=== PATIENT | male | born 1985 | race Hispanic/Latino ===

== ENCOUNTER 2020-01-01 11:56 | Inpatient (IN) | payer OTHER, SELFPAY ==
[2020-01-01 13:17] LABS: #Basophils 0.1 thou/uL (0.0-0.2); #Lymphocytes 1.4 thou/uL (1.20-3.40); #Monocytes 1.7 thou/uL (0.11-0.59); %Basophils 0.7 % (0.0-1.0); %Eosinophils 0.4 % (0.0-10.0); %Lymphocytes 12.8 % (21.0-51.0); %Monocytes 14.9 % (0.0-10.0); %Neutrophils 71.1 % (42.0-75.0); Hemoglobin 13.6 g/dL (14.0-18.0); Mean Corpuscular HGB CONC 33.7 g/dL (32.0-36.0); Mean Platelet Volume 9.8 fL (7.4-10.4); Platelet Count 131 thou/uL (130-400); RBC Distribution Width 13.2 % (11.5-14.5); Red Blood Cell (RBC) Count 3.88 mill/uL (4.70-6.10); White Blood Cell (WBC) Count 11.2 thou/uL (4.8-10.8)
[2020-01-01] MEDS ORDERED: Meclizine HCl 25 MG TAB ONE (13:28)
[2020-01-01 13:40] LABS: ALT (SGPT) 51 U/L (8-55); AST (SGOT) 142 U/L (5-34); Albumin 2.1 g/dL (3.5-5.0); Alkaline Phosphatase 265 U/L (40-110); Anion Gap 12 mmol/L (10-20); BUN (Urea Nitrogen) 26 mg/dL (8.9-20.6); Bilirubin, Total 10.7 mg/dL (0.2-1.2); CK (CPK) 103 U/L (30-200); Calc. Creatinine Clearance 0 mL/min (70-130); Calcium 7.5 mg/dL (7.8-10.44); Carbon Dioxide 25 mmol/L (22-29); Chloride 93 mmol/L (98-107); Estimated GFR-MDRD 67; Globulin 5.8 g/dL (2.4-3.5); Glucose 126 mg/dL (70-105); Potassium 3.2 mmol/L (3.5-5.1); Protein, Total 7.9 g/dL (6.0-8.3); Sodium 127 mmol/L (136-145)
[2020-01-01] MEDS ORDERED: Lorazepam 2 MG/ML VIAL ONE ×2 (13:44→17:36)
--- NOTE | 2020-01-01 14:17 | CT ---
CT BRAIN WITHOUT CONTRAST: HISTORY: Dizziness FINDINGS: No evidence of acute infarct, hemorrhage, midline shift or abnormal extra-axial fluid collections is seen. The ventricular size is appropriate and the basilar cisterns are patent. The bony calvarium is intact. The visualized paranasal sinuses and mastoid air cells are well aerated. IMPRESSION: No CT evidence of acute intracranial process.
[2020-01-01 16:07] LABS: Clarity Hazy (Clear)
[2020-01-01 16:08] LABS: Leukocyte Unable to Interpret (Negative); Nitrite Unable to Interpret (Negative); Protein, Urine (Dipstick) Unable to Interpret mg/dL (Neg-Trace)
[2020-01-01 16:09] LABS: Bilirubin Unable to Interpret (Negative); Blood, Urine Unable to Interpret (Negative); Glucose, Urine (Dipstick) Unable to Interpret mg/dL (Negative); Ketone, Urine Unable to Interpret mg/dL (Negative); Urobilinogen UNABLE TO INTERPRET mg/dL (Less than 2)
[2020-01-01 16:13] LABS: RBC/HPF 0-3 HPF (0-3)
[2020-01-01 16:14] LABS: Squamous Epithelial 0-3 HPF (0-3)
[2020-01-01] MEDS ORDERED: Magnesium 2 GM/50 ML BAG (IN WATER) ONE (17:09)
--- NOTE | 2020-01-01 17:14 | CT ---
CT ABDOMEN AND PELVIS WITHOUT IV CONTRAST: 01/01/20 INDICATIONS: Increased bilirubin. Dizziness. Abnormal urine. There are no comparisons. FINDINGS: Images through the lung bases show patchy nodular infiltrates in both lung bases suggesting an atypic al pneumonia. COVID pneumonia should be excluded. Recommend PA and lateral views of the chest. Images through the upper abdomen show low volume ascites with fluid around the liver margin into the right colonic gutter and a small amount of fluid into the lower abdomen and pelvis. The liver exhibits a mildly irregular contour which is suggestive of cirrhosis. There is borderline s plenomegaly and increased splenic varices. Evidence of early esophageal varices. The pancreas is unremarkable given the limitations of a noncontrast study. The gallbladder is mildly distended. There is mild diffuse mesenteric edema related to the ascites. Adrenal glands normal. Kidneys unremarkable. Small bowel loops normal caliber. Colon unremarkable. Appendix appears normal. Images through the pelvis show unremarkable urinary bladder and prostate. Osseous structures unremark able. IMPRESSION: 1. Diffuse nodular infiltrates in both lung bases consistent with atypical pneumonia. Rule out COVID pneumonia. Recommend upright PA and lateral views of the chest. 2. Findings indicating cirrhosis and portal hypertension as described above with low volume asci lamont as noted above. POS: AGW
[2020-01-01 17:31] LABS: Vitamin B12 Greater than 2000 pg/mL (211-911)
[2020-01-01 17:35] LABS: HBSAg Index 0.17 S/CO (0-0.99); Hep A IgM AB Non-Reactive (NonReactive); Hep A IgM S/CO 0.56 S/CO (0-0.79); Hep B Surf Ag Non-Reactive S/CO (NonReactive); Hep C IgG Ab Non-Reactive (NonReactive); Hep C Index 0.31 S/CO (0-0.79); Hepatitis B Core IgM Abs Non-Reactive (NonReactive)
[2020-01-01] MEDS ORDERED: HYDROcodone/Acetaminophen 5/325 mg Tablet PO PRN (20:43)
[2020-01-01] MEDS ORDERED: Acetaminophen 325 MG TAB PO PRN (20:43)
[2020-01-01] MEDS ORDERED: Acetaminophen 650 MG Suppository PR PRN (20:43)
[2020-01-01] MEDS ORDERED: Calcium Carbonate 500 MG ChewTAB PO PRN (20:43)
[2020-01-01] MEDS ORDERED: Dextrose 5% in Water 1,000 ML IV PRN (20:53)
[2020-01-01] MEDS ORDERED: Dextrose 50% Abboject 50 ML SYRINGE SLOW IVP PRN (20:53)
[2020-01-01] MEDS ORDERED: Insulin Regular 300 UNITS/3 ML VIAL SC PRN (20:53)
--- NOTE | 2020-01-01 20:53 | PDOC.HHP ---
Hospitalist HPI - History of Present Illness generalize weakness mohr History of Present Illness: Case of an 34y/o male with pmhx of DM and cirrhosis secondary to alcohol abuse who comes to hospital due to generalize weakness. patient refers he was on his usual state of health until about a week ago when he started with generalize weakness and mohr. he refers just climbing a set of stairs leaves him w/o air and has to sit down to rest. he was taken by his friend to an outpatient clinic and later refers here for evaluation. patient is also complaining of some ataxia , upon questioning further he refers that some times when he walks he get cramps on his calf wich makes it difficult to walk. of the reason they brought him for he states they found something in his urine. patient states he is a heavy drinker but decided to quit on sunday and has not drink since then. at the ED pt was evaluated and dx with covid 19 pneumonia for which hospitalist was called for further evaluation and management. Hospitalist ROS - Review of Systems All other systems reviewed; all pertinent +/- noted in HPI/Subj Hospitalist History - Past Surgical History Past Surgical History: reports: no pertinent history - Family History Family History: reports: diabetes mellitus - Social History Smoking Status: Current some day smoker Alcohol: reports: Heavy Drugs: reports: none - Exam General Appearance: NAD, awake alert General - other findings: icterus Eye: PERRL, scleral icterus ENT: normocephalic atraumatic, no oropharyngeal lesions Neck: supple, symmetric, no JVD Heart: RRR, no murmur, no gallops Respiratory: CTAB, no wheezes, no rales Gastrointestinal: soft, non-tender, normal bowel sounds, distended Extremities: no cyanosis, no clubbing Skin: normal turgor, no lesions, no rashes Neurological: cranial nerve grossly intact, normal sensation to touch Musculoskeletal: normal tone, normal strength, no muscle wasting Psychiatric: normal affect, normal behavior, A&O x 3 Hospitalist Results - Labs Result Diagrams: 01/01/20 12:45 01/01/20 12:45 Lab results: WBC 11.2 thou/uL (4.8-10.8) H 01/01/20 12:45 Hgb 13.6 g/dL (14.0-18.0) L 01/01/20 12:45 Hct 40.2 % (42.0-52.0) L 01/01/20 12:45 MCV 104.0 fL (78.0-98.0) H 01/01/20 12:45 Plt Count 131 thou/uL (130-400) 01/01/20 12:45 Neutrophils % 71.1 % (42.0-75.0) 01/01/20 12:45 Sodium 127 mmol/L (136-145) L 01/01/20 12:45 Potassium 3.2 mmol/L (3.5-5.1) L 01/01/20 12:45 Chloride 93 mmol/L (98-107) L 01/01/20 12:45 Carbon Dioxide 25 mmol/L (22-29) 01/01/20 12:45 BUN 26 mg/dL (8.9-20.6) H 01/01/20 12:45 Creatinine 1.22 mg/dL (0.7-1.3) 01/01/20 12:45 Glucose 126 mg/dL (70-105) H 01/01/20 12:45 Calcium 7.5 mg/dL (7.8-10.44) L 01/01/20 12:45 Total Bilirubin 10.7 mg/dL (0.2-1.2) H 01/01/20 12:45 AST 142 U/L (5-34) H 01/01/20 12:45 ALT 51 U/L (8-55) 01/01/20 12:45 Alkaline Phosphatase 265 U/L (40-110) H 01/01/20 12:45 Ammonia 53 umol/L (18-72) 01/01/20 14:20 Creatine Kinase 103 U/L (30-200) 01/01/20 12:45 Troponin I Less than 0.010 ng/mL (< 0.028) 01/01/20 12:45 Serum Total Protein 7.9 g/dL (6.0-8.3) 01/01/20 12:45 Albumin 2.1 g/dL (3.5-5.0) L 01/01/20 12:45 Urine Ketones Unable to Interpret mg/dL (Negative) 01/01/20 15:33 Urine Blood Unable to Interpret (Negative) 01/01/20 15:33 Urine Nitrite Unable to Interpret (Negative) 01/01/20 15:33 Ur Leukocyte Esterase Unable to Interpret (Negative) 01/01/20 15:33 Urine RBC 0-3 HPF (0-3) 01/01/20 15:33 Urine WBC 7-10 HPF (0-3) A 01/01/20 15:33 Ur Squamous Epith Cells 0-3 HPF (0-3) 01/01/20 15:33 - Radiology Interpretation CT scan - abdomen Additional Comment: IMPRESSION: 1. Diffuse nodular infiltrates in both lung bases consistent with atypical pneumonia. Rule out COVID pneumonia. Recommend upright PA and lateral views of the chest. 2. Findings indicating cirrhosis and portal hypertension as described above with low volume asci lamont as noted above. Hospitalist H&P A/P - Problem (1) Pneumonia due to COVID-19 virus Code(s): U07.1 - COVID-19; J12.89 - OTHER VIRAL PNEUMONIA Status: Acute (2) Cirrhosis of liver Code(s): K74.60 - UNSPECIFIED CIRRHOSIS OF LIVER Status: Acute (3) Alcohol abuse Code(s): F10.10 - ALCOHOL ABUSE, UNCOMPLICATED Status: Acute (4) Diabetes Code(s): E11.9 - TYPE 2 DIABETES MELLITUS WITHOUT COMPLICATIONS Status: Acute (5) Hyponatremia Code(s): E87.1 - HYPO-OSMOLALITY AND HYPONATREMIA Status: Acute (6) Hypokalemia Code(s): E87.6 - HYPOKALEMIA Status: Acute (7) Ataxia Code(s): R27.0 - ATAXIA, UNSPECIFIED Status: Acute - Plan Plan: covid 19 pneumonia - abd ct findings consistent with covid 19 - positive test - started prophylactically on rocephin and azithromycin - adequate 02 sat but pt does complain of mohr, will start low dose dexamethasone - inflammation markers - f/u blood cultures hypokalemia / hypomag - replace electrolites hyponatremia - poor diet - hypoosmolar hypovolemic - on ivfs -f/u bmp cirrhosis of liver / alcohol abuse - recently stopped drinking - monitor for withdrawal - ase protocol ataxia - head ct negative - could be thiamine def, will give a banana bag and start thiamine pod - b12 normal - replace electrolites - could be withdrawal symptoms DM - accu checks and ss
[2020-01-01] MEDS ORDERED: Diazepam 5 MG TAB PO PRN (21:44)
[2020-01-01] MEDS ORDERED: Azithromycin 500 MG in Sodium Chloride 0.9% 250 ML 250 ML IVPB SCH (22:00)
[2020-01-01] MEDS: Sodium Chloride 0.9% 1,000 ML IV SCH (22:55)
[2020-01-02] MEDS ORDERED: cefTRIAXone\\ROCEPHIN 2 GM VIAL ONE (00:53)
[2020-01-02] MEDS: cefTRIAXone\\ROCEPHIN 2 GM in Sodium Chloride 0.9% 100 ML IVPB SCH ×2 (01:00→21:50)
[2020-01-02] MEDS ORDERED: Azithromycin 500 MG VIAL ONE (01:30)
[2020-01-02] MEDS: Azithromycin 500 MG in Sodium Chloride 0.9% 250 ML 250 ML IVPB SCH ×2 (01:36→21:50)
[2020-01-02] MEDS ORDERED: Mag-Al 1200 mg/1200 mg/30 ML UDCUP ONE (02:19)
[2020-01-02] MEDS ORDERED: Lidocaine Viscous Sol 2% 15 ml UD Cup ONE (02:19)
[2020-01-02] MEDS ORDERED: Diazepam 5 MG TAB PO PRN (04:00)
[2020-01-02 07:28] LABS: ALT (SGPT) 42 U/L (8-55); AST (SGOT) 104 U/L (5-34); Albumin 1.7 g/dL (3.5-5.0); Alkaline Phosphatase 189 U/L (40-110); Anion Gap 10 mmol/L (10-20); BUN (Urea Nitrogen) 17 mg/dL (8.9-20.6); Bilirubin, Total 8.8 mg/dL (0.2-1.2); Calc. Creatinine Clearance 0 mL/min (70-130); Carbon Dioxide 24 mmol/L (22-29); Chloride 99 mmol/L (98-107); Estimated GFR-MDRD Greater than 90; Globulin 4.8 g/dL (2.4-3.5); Glucose 130 mg/dL (70-105); Magnesium 1.5 mg/dL (1.6-2.6); Protein, Total 6.5 g/dL (6.0-8.3); Sodium 130 mmol/L (136-145)
[2020-01-02 07:33] LABS: Potassium 2.9 mmol/L (3.5-5.1)
[2020-01-02] MEDS ORDERED: Potassium Chloride 20 MEQ TAB ONE (07:43)
[2020-01-02 07:48] LABS: Mean Corpuscular HGB CONC 32.3 g/dL (32.0-36.0); Mean Corpuscular Hemoglobin 33.8 pg (27.0-31.0); Mean Platelet Volume 8.9 fL (7.4-10.4); Platelet Count 110 thou/uL (130-400); RBC Distribution Width 13.2 % (11.5-14.5); Red Blood Cell (RBC) Count 3.56 mill/uL (4.70-6.10); White Blood Cell (WBC) Count 6.6 thou/uL (4.8-10.8)
[2020-01-02 07:49] LABS: Band 4 % (5-11); Eosinophils 2 % (0-10); Hypochromia SLIGHT = 6-15 cells (100X) (0-5/hpf); Lymphocytes 9 % (21-51); MDiff Complete? YES; Macrocytosis SLIGHT = 6-15 cells (100X) (0-5/hpf); Monocytes 8 % (0-10); Neutrophil 76 % (42-75); Platelet Morphology Comment Appears Decreased
[2020-01-02] MEDS ORDERED: Dexamethasone 10 MG/ML VIAL SLOW IVP SCH (09:00)
[2020-01-02] MEDS ORDERED: Enoxaparin Sodium 40 MG/0.4 ML SYRINGE SC SCH (09:00)
[2020-01-02] MEDS: Sodium Chloride 0.9% 1,000 ML IV SCH (09:45)
[2020-01-02] MEDS: Multivitamin W/ Minerals 1 TAB PO SCH (09:45)
[2020-01-02] MEDS: Magnesium Oxide 400 MG TAB PO SCH (09:45)
[2020-01-02] MEDS: Folic Acid 1 MG TAB PO SCH (09:45)
[2020-01-02] MEDS: Thiamine 100 MG TAB PO SCH (09:45)
[2020-01-02 09:48] LABS: Amphetamine Not Detected (NotDetected); Barbiturates Screen Not Detected (NotDetected); Benzodiazepine Screen Not Detected (NotDetected); Cocaine Metabolite Screen Not Detected (NotDetected); Medtox Control Line Valid? VALID (VALID); Medtox Reader # READER 4; Methadone Not Detected (NotDetected); Methamphetamine Not Detected (NotDetected); Opiate Screen Not Detected (NotDetected); Oxycodone Screen Not Detected (NotDetected); Phencyclidine (PCP) Not Detected (NotDetected); THC/Cannabinoid Screen Not Detected (NotDetected); Tricyclic Screen Not Detected (NotDetected)
[2020-01-02 10:02] VITALS: BMI 28.3
[2020-01-02] MEDS ORDERED: Lorazepam 2 MG/ML VIAL SLOW IVP PRN (10:23)
[2020-01-02] MEDS ORDERED: Potassium Citrate 10 MEQ TAB PO SCH (10:30)
[2020-01-02] MEDS ORDERED: Magnesium 2 GM/50 ML 2 GM in Premix Bag 1 BAG IVPB SCH (10:30)
[2020-01-02] MEDS ORDERED: NS 0.9% w/ 40 MEQ KCL 100 ML IV SCH (10:30)
[2020-01-02] MEDS: Potassium Chloride 20 MEQ in Premix Bag 1 BAG IVPB SCH ×2 (11:57→15:26)
[2020-01-02] MEDS: Enoxaparin Sodium 40 MG/0.4 ML SYRINGE SC SCH (20:37)
[2020-01-02] MEDS: Diazepam 2 MG TAB PO SCH (20:37)
[2020-01-02] MEDS ORDERED: Propofol 1,000 MG/100 ML VIAL IV ONE (23:11)
[2020-01-03] MEDS: Sodium Chloride 0.9% 1,000 ML IV SCH (08:16)
[2020-01-03] MEDS: Enoxaparin Sodium 40 MG/0.4 ML SYRINGE SC SCH (08:17)
[2020-01-03] MEDS: Folic Acid 1 MG TAB PO SCH (08:17)
[2020-01-03] MEDS: Thiamine 100 MG TAB PO SCH (08:17)
[2020-01-03] MEDS: Magnesium Oxide 400 MG TAB PO SCH (08:17)
[2020-01-03] MEDS: Multivitamin W/ Minerals 1 TAB PO SCH (08:17)
[2020-01-03] MEDS: Diazepam 2 MG TAB PO SCH (08:18)
[2020-01-03 08:31] VITALS: BP 136/79; TEMP 98.2
--- NOTE | 2020-01-03 11:54 | PDOC.HOSPP ---
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 ambualating inside the room without distress. he denied any ongoing productive cough and wants to go home. - Objective Vital Signs & Weight: Vital Signs (12 hours) Temp Pulse Resp BP BP Pulse Ox 01/03/20 08:00 98.2 F 100 16 136/79 136/79 92 L 01/03/20 04:12 98.3 F 95 18 122/79 122/79 93 L 01/03/20 00:00 98.4 F 101 H 16 137/79 137/79 92 L Weight Weight 170 lb 9.6 oz I&O: 01/02/20 01/03/20 01/04/20 06:59 06:59 06:59 Intake Total 2490 Output Total 1100 Balance 1390 Result Diagrams: 01/02/20 06:53 01/02/20 06:53 Additional Labs: Accuchecks 01/02/20 18:20 POC Glucose 242 H - Exam General Appearance: NAD, awake alert Eye: PERRL ENT: normocephalic atraumatic Neck: supple Neurological: no focal deficits Musculoskeletal: normal tone Hosp A/P - Plan (1) Pneumonia due to COVID-19 virus Code(s): U07.1 - COVID-19; J12.89 - OTHER VIRAL PNEUMONIA Status: Acute (2) Cirrhosis of liver Code(s): K74.60 - UNSPECIFIED CIRRHOSIS OF LIVER Status: Acute (3) Alcohol abuse Code(s): F10.10 - ALCOHOL ABUSE, UNCOMPLICATED Status: Acute (4) Diabetes Code(s): E11.9 - TYPE 2 DIABETES MELLITUS WITHOUT COMPLICATIONS Status: Acute (5) Hyponatremia Code(s): E87.1 - HYPO-OSMOLALITY AND HYPONATREMIA Status: Acute (6) Hypokalemia Code(s): E87.6 - HYPOKALEMIA Status: Acute (7) Ataxia Code(s): R27.0 - ATAXIA, UNSPECIFIED Status: Acute - Plan Plan: covid 19 pneumonia - abd ct findings consistent with covid 19 - positive test - started prophylactically on rocephin and azithromycin - adequate 02 sat but pt does complain of mohr, will start low dose dexamethasone - inflammation markers - f/u blood cultures hypokalemia / hypomag - replaced hyponatremia - chronic cirrhosis of liver / alcohol abuse - stable ataxia - chronic alcohol use. -no PT since COVID +ve. DM - accu checks and ss pt seen , but missed putting the note.
--- NOTE | 2020-01-03 12:26 | DIS ---
DATE OF ADMISSION: 01/01/2020 DATE OF DISCHARGE: 01/03/2020 DISCHARGE DIAGNOSES: 1. Comorbid pneumonia. 2. Liver cirrhosis. 3. Alcohol abuse. 4. Diabetes. 5. Hyponatremia. DISCHARGE MEDICATIONS: 1. Decadron 6 mg daily for 10 days. 2. Vitamin C 1000 mg daily for 3 weeks. He is also instructed to get [id number] vitamin D 2000 international unit as well as zinc and at least take it for 3 weeks. PHYSICAL EXAMINATION: VITAL SIGNS: He is saturating 92% on room air. Temperature 98.2, his blood pressure 136/79, his respirations 16. He is ambulating without any distress. The patient is stable to go home. He is instructed to stay away from his family members and to wear the mask when interacting with the family. HOSPITAL COURSE: This is a 34-year-old male, German-speaking only, presented with generalized weakness and history of alcohol abuse. He went to the outpatient clinic and later referred here for further evaluation. He is COVID positive. He has ongoing alcohol abuse and quite anxious to go home yesterday during my rounds. We monitored him for another 24 hours to make sure no debilitating hypoxia. He is hemodynamically stable, did not have any severe distress. He is discharged home in a stable condition. DISCHARGE INSTRUCTIONS: Activity as tolerated. Regular diet. Please keep distance from your family members for the next 10 days, wear the mask when you are interacting with them. Discharge time took over 35 minutes. Job ID: [id number] [facility]
== END 2020-01-03 10:41 | disposition home or self-care (01) | DRG 177 ==
LOC: ERS 11:56 → ERHOLD 17:33 → OBSVTOIN 17:33 → 2SW 01-02 07:54 → T4-B 01-02 19:26
PROVIDERS: ADMIT Internal Medicine; ATTEND Internal Medicine
PROC: 8E0ZXY6 Isolation (ICD-10-PCS; principal; 2020-01-01)
DX: U07.1 COVID-19 (principal); J12.89 Other viral pneumonia; E87.1 Hypo-osmolality and hyponatremia; K70.30 Alcoholic cirrhosis of liver without ascites; F10.10 Alcohol abuse, uncomplicated; E11.9 Type 2 diabetes mellitus without complications; E87.6 Hypokalemia; R27.0 Ataxia, unspecified; E83.42 Hypomagnesemia; F17.210 Nicotine dependence, cigarettes, uncomplicated
CPT/HCPCS: 36415; 36416; 70450; 74176; 80053; 80074; 80306; 80307; 81003; 81015; 82140; 82550; 82607; 83605; 83735; 83930; 83935; 84145; 84300; 84484; 85025; 85379; 86140; 87040; 87086; 93005; 96361; 96365; 96366; 96375; J0456; J0696; J1100; J1650; J1815; J2060; J2704; J3411; J3475; J3480; J3490; J7050; U0002

== ENCOUNTER 2020-01-31 19:21 | Inpatient (IN) | payer OTHER, SELFPAY ==
[~2020-01-31 19:21] MED LIST: Iopamidol-370 76% 500 ML 1 ML ONE
[2020-01-31] MEDS ORDERED: Cefepime 2 GM VIAL ONE (19:35)
[2020-01-31] MEDS ORDERED: Vancomycin 1 GM/200 ML BAG ONE ×2 (19:35→20:10)
[2020-01-31 20:07] LABS: Hemoglobin 8.9 g/dL (14.0-18.0); Mean Corpuscular HGB CONC 34.6 g/dL (32.0-36.0); Mean Corpuscular Hemoglobin 36.5 pg (27.0-31.0); RBC Distribution Width 16.6 % (11.5-14.5); Red Blood Cell (RBC) Count 2.44 mill/uL (4.70-6.10); White Blood Cell (WBC) Count 5.8 thou/uL (4.8-10.8)
[2020-01-31 20:08] LABS: PTT 58.9 sec (22.9-36.1)
[2020-01-31 20:10] LABS: Base Excess-Venous -5.6 mmol/L (-2.0 to 3.0); Bicarbonate (HCO3v) 14.7 mmol/L (22.0-28.0); Chloride 111 mmol/L (98-107); Hemoglobin - Calc 8.2 g/dL (14.0-18.0); Potassium 3.9 mmol/L (3.5-5.1); Sodium 138 mmol/L (138-145); T. Carbon Dioxide 15.1 mmol/L (22.0-28.0); vO2 Saturation-calc 98.1 % (60.0-85.0)
[2020-01-31] MEDS ORDERED: Lorazepam 2 MG/ML VIAL ONE (20:10)
[2020-01-31 20:12] LABS: INR-International Normal Ratio 2.5; Prothrombin Time 26.8 sec (12.0-14.7)
[2020-01-31 20:15] LABS: Bilirubin Negative (Negative); Blood, Urine Negative (Negative); Clarity Clear (Clear); Glucose, Urine (Dipstick) Normal (Negative); Ketone, Urine Negative (Negative); Leukocyte Negative Leu/uL (Negative); Nitrite Negative (Negative); Protein, Urine (Dipstick) Negative (Neg-Trace)
[2020-01-31 20:21] LABS: #Eosinphils 0.1 thou/uL (0.0-0.7); #Monocytes 0.9 thou/uL (0.11-0.59); #Neutrophils 2.9 thou/uL (1.40-6.50); %Basophils 0.6 % (0.0-1.0); %Lymphocytes 33.4 % (21.0-51.0); %Monocytes 14.6 % (0.0-10.0); %Neutrophils 50.4 % (42.0-75.0); Acetaminophen Less than 6.0 mcg/mL (10.0-30.0); Alcohol Less than 10 mg/dL (Less than 10); Mean Platelet Volume 8.8 fL (7.4-10.4); Platelet Count 36 thou/uL (130-400); Platelet Morphology Comment Appears Decreased; Salicylate Less than 8.0 mg/dL (15.0-30.0)
[2020-01-31 20:23] LABS: ALT (SGPT) 36 U/L (8-55); AST (SGOT) 50 U/L (5-34); Albumin 3.4 g/dL (3.5-5.0); Alkaline Phosphatase 122 U/L (40-110); Anion Gap 15 mmol/L (10-20); BUN (Urea Nitrogen) 11 mg/dL (8.9-20.6); Bilirubin, Total 11.8 mg/dL (0.2-1.2); Calc. Creatinine Clearance 0 mL/min (70-130); Calcium 8.3 mg/dL (7.8-10.44); Carbon Dioxide 15 mmol/L (22-29); Chloride 107 mmol/L (98-107); Estimated GFR-MDRD Greater than 90; Globulin 2.5 g/dL (2.4-3.5); Glucose 77 mg/dL (70-105); Lipase 111 U/L (8-78); Magnesium 1.2 mg/dL (1.6-2.6); Protein, Total 5.9 g/dL (6.0-8.3); Sodium 133 mmol/L (136-145)
[2020-01-31 20:25] LABS: Amphetamine Not Detected (NotDetected); Barbiturates Screen Not Detected (NotDetected); Benzodiazepine Screen Detected (NotDetected); Cocaine Metabolite Screen Not Detected (NotDetected); Medtox Control Line Valid? VALID (VALID); Medtox Reader # READER 4; Methadone Not Detected (NotDetected); Methamphetamine Not Detected (NotDetected); Opiate Screen Not Detected (NotDetected); Oxycodone Screen Not Detected (NotDetected); Phencyclidine (PCP) Not Detected (NotDetected); THC/Cannabinoid Screen Not Detected (NotDetected); Tricyclic Screen Not Detected (NotDetected)
--- NOTE | 2020-01-31 20:38 | RAD ---
SEMI UPRIGHT FRONTAL CHEST RADIOGRAPH: Date: 01-31-2020 Comparison: None History: Altered mental status. FINDINGS: No pneumothorax, pleural fluid, focal consolidation, or alveolar edema. Heart and mediastinal contour s are unremarkable. IMPRESSION: No acute findings. POS: OFF
--- NOTE | 2020-01-31 21:31 | CT ---
HEAD CT WITHOUT CONTRAST: Date: 01-31-2020 Comparison: 01-01-2020 History: Altered mental status. Technique: Axial CT imaging at 5 mm interval from vertex through the skull base without contrast. FINDINGS: The imaged paranasal sinuses and mastoid air cells are well aerated. There is no displaced calvarial fracture, intracranial hemorrhage, midline shift or mass effect. Mild diffuse cerebral volume loss. IMPRESSION: Stable head CT - no acute findings. POS: OFF
--- NOTE | 2020-01-31 21:48 | CT ---
CT ABDOMEN AND PELVIS: Date: 01-31-2020 Comparison: 01-23-2020, 01-01-2020 History: Jaundice and abdominal distention. Technique: Axial CT imaging at 5 mm intervals from lung bases through the pubic symphysis with IV co ntrast. Coronal and sagittal reformatted imaging obtained. FINDINGS: Increased linear interstitial density and ground glass opacity noted within the bilateral lower lobes , similar when compared to the prior examination and consistent with the provided history of Covid po sitive status/Covid pneumonia. There are coronary arterial calcifications present. No free intraperit serrano air. The urinary bladder is distended. The liver is heterogeneous and peripherally irregular c onsistent with cirrhosis. The spleen is enlarged, evidence of portal hypertension, measuring at least 14 cm in AP dimension. Upper abdominal varices with paraesopageal varices and varices within the reg ion of the lesser curvature of the stomach are noted, consistent with portal hypertension. Gallbladde r demonstrates nonspecific mild distention. There is ascites within the right upper quadrant, of rela tively small volume, markedly decreased in size when compared to the 01-23-2020 exam. There is small vo lume ascites within bilateral paracolic gutters. The pancreas, adrenal glands, and kidneys are grossly unremarkable aside from mild fullness of bilate ral renal collecting systems, likely on the basis of urinary bladder distention. Evaluation of the glenny wel is somewhat limited without oral contrast media and demonstrates no evidence for inflammatory shraddha nge or obstruction. The appendix appears unremarkable. Vascular structures appear patent. No abdomina l or pelvic adenopathy. No worrisome lytic or blastic bone lesions. IMPRESSION: 1. Bibasilar interstitial opacity and ground glass opacity consistent with the provided history of Co vid pneumonia. 2. Small volume ascites, markedly decreased in volume when compared to 01-23-2020. 3. Cirrhotic liver with evidence of portal hypertension as detailed above. 4. The urinary bladder is quite distended with associated fullness of bilateral renal collecting syst ems. POS: OFF
[2020-01-31] MEDS ORDERED: Lidocaine 1% (PF) 30 ML VIAL ONE (21:54)
[2020-01-31] MEDS ORDERED: Magnesium 2 GM/50 ML BAG (IN WATER) ONE (23:01)
[2020-02-01] MEDS ORDERED: Ondansetron ODT 4 MG TAB SL PRN (01:01)
[2020-02-01] MEDS ORDERED: Ondansetron PF 4 MG/2 ML Vial IVP PRN ×2 (01:01→01:34)
[2020-02-01] MEDS ORDERED: Acetaminophen 325 MG TAB PO PRN (01:34)
[2020-02-01] MEDS ORDERED: cloNIDine 0.1 MG TAB PO PRN (01:34)
[2020-02-01] MEDS ORDERED: Guaifenesin DM 100-10/5 ML UDCUP PO PRN (01:34)
[2020-02-01] MEDS ORDERED: Promethazine HCl 12.5 MG in Sodium Chloride 0.9% 50 ML IVPB PRN (01:34)
[2020-02-01] MEDS ORDERED: hydrALAZINE 20 MG/ML VIAL SLOW IVP PRN (01:34)
[2020-02-01] MEDS ORDERED: Labetalol HCl 100 MG/20 ML VIAL SLOW IVP PRN (01:34)
[2020-02-01] MEDS ORDERED: Diazepam 5 MG TAB PO PRN (01:41)
[2020-02-01] MEDS ORDERED: Electrolyte Replacement Protoc 1 EACH EACH FS SCH (01:45)
[2020-02-01 01:46] VITALS: BMI 26.9
[2020-02-01] MEDS ORDERED: Albuterol 200 PUFF (6.7GM INHALER) INH PRN (01:54)
[2020-02-01] MEDS ORDERED: Diazepam 5 MG TAB PO SCH (02:00)
[2020-02-01] MEDS ORDERED: Thiamine HCl 200 MG/2 ML VIAL IM SCH (02:00)
[2020-02-01] MEDS ORDERED: Electrolyte Replacement Protocol FS PRN (02:00)
--- NOTE | 2020-02-01 02:33 | PDOC.HHP ---
Hospitalist HPI - History of Present Illness Altered mental status History of Present Illness: Patient is a 34 year old male with PMH cirrhosis, hepatitis A and C diseases, alcohol abuse, T2DM who presents to hospital via ED for altered mental status, patient was recently admitted here for decompensated cirrhosis 01/22-01/28, had large volume paracentesis x 2 draining ~7L, studies from that admission were not consistent with SBP, patient eloped 3 days ago on 01/28. He reportedly had stated that he was withdrawing from alcohol before leaving A last admission. He was diagnosed with COVID here in a third separate admission earlier in December. He presents today not oriented, jaundiced, AOx0-1, confused, unable to answer questions. In ED, CXR, head CT without acute findings, CT A/P reports bibasilar changes consistent with COVID 19 pneumonia, small volume ascites improved from previous, distended bladder. Labs with significant abnormalities, with INR 2.5, Na 133, CO2 15, Mg 1.2, Tbili 11.8, AST 50, ammonia 132. ABG w/ significant respiratory alkalosis. Patient is awake and alert, not oriented, jaundiced, agitated and requiring close monitoring, he is not coughing. Vitals with Tmax 100 in ED, tachycardia, no hypotension. Patient clinically not showing signs of covid pneumonia, however still requires admission for decompensated cirrhosis and hepatic encephalopathy. In ED, they attempted diagnostic paracentesis but was not enough fluid present, he was given abx for SBP ppx empirically. Hospitalist ROS - Review of Systems ROS unobtainable: due to mental status - Medication Medications: discharge meds last admission reviewed and restarted, see admission documents, on lasix/furosemide, propranolol Hospitalist History - Past Medical History Other Medical History: cirrhosis, hepatitis A and C diseases, alcohol abuse, T2DM - Past Surgical History Past Surgical History: reports: no pertinent history - Family History Family History: reports: no pertinent history - Social History Alcohol: reports: Heavy Drugs: reports: none - Exam General - other findings: AOx0-1, agitated, no distress Eye - other findings: jaundices, PERRL ENT: normocephalic atraumatic, no oropharyngeal lesions, moist mucosa Neck: supple, no JVD Heart: no murmur, no gallops, no rubs Heart - other findings: tachycardic Respiratory: CTAB, no wheezes, no rales, no ronchi Gastrointestinal: soft, normal bowel sounds, distended Gastrointestinal - other findings: diffusely tender Extremities: no cyanosis, no clubbing Extremities - other findings: edema Skin: no lesions, no rashes Neurological - other findings: altered mental status, asterixis Musculoskeletal: normal tone, normal strength Psychiatric: not oriented Psychiatric - other findings: agitated Hospitalist Results - Labs Result Diagrams: 01/31/20 19:48 01/31/20 19:48 Lab results: WBC 5.8 thou/uL (4.8-10.8) 01/31/20 19:48 Hgb 8.9 g/dL (14.0-18.0) L 01/31/20 19:48 Hct 25.7 % (42.0-52.0) L 01/31/20 19:48 MCV 105.0 fL (78.0-98.0) H 01/31/20 19:48 Plt Count 36 thou/uL (130-400) L 01/31/20 19:48 Neutrophils % 50.4 % (42.0-75.0) 01/31/20 19:48 VBG pCO2 15.0 mmHg (40.0-50.0) L* 01/31/20 19:54 VBG pO2 81.9 mmHg (35.0-45.0) H 01/31/20 19:54 Sodium 133 mmol/L (136-145) L 01/31/20 19:48 Potassium 4.0 mmol/L (3.5-5.1) 01/31/20 19:48 Chloride 107 mmol/L (98-107) 01/31/20 19:48 Carbon Dioxide 15 mmol/L (22-29) L 01/31/20 19:48 BUN 11 mg/dL (8.9-20.6) 01/31/20 19:48 Creatinine 0.73 mg/dL (0.7-1.3) 01/31/20 19:48 Glucose 77 mg/dL (70-105) 01/31/20 19:48 Lactic Acid 2.0 mmol/L (0.5-2.2) 01/31/20 19:48 Calcium 8.3 mg/dL (7.8-10.44) 01/31/20 19:48 Total Bilirubin 11.8 mg/dL (0.2-1.2) H 01/31/20 19:48 AST 50 U/L (5-34) H 01/31/20 19:48 ALT 36 U/L (8-55) 01/31/20 19:48 Alkaline Phosphatase 122 U/L (40-110) H 01/31/20 19:48 Ammonia 132 umol/L (18-72) H 01/31/20 19:48 Troponin I 0.014 ng/mL (< 0.028) 01/31/20 19:48 Serum Total Protein 5.9 g/dL (6.0-8.3) L 01/31/20 19:48 Albumin 3.4 g/dL (3.5-5.0) L 01/31/20 19:48 Lipase 111 U/L (8-78) H 01/31/20 19:48 Urine Ketones Negative mg/dL (Negative) 01/31/20 20:00 Urine Blood Negative (Negative) 01/31/20 20:00 Urine Nitrite Negative (Negative) 01/31/20 20:00 Ur Leukocyte Esterase Negative Safia/uL (Negative) 01/31/20 20:00 Hospitalist H&P A/P - Plan Plan: Patient is a 34 year old male with PMH cirrhosis, hepatitis A and C diseases, alcohol abuse, T2DM who presents to hospital via ED for altered mental status. # altered mental status secondary to hepatic encephalopathy # decompensated cirrhosis # alcohol abuse - reported plans to use alcohol after last admission when patient went AMA # hepatitis A and C viral infections Patient was recently admitted here for decompensated cirrhosis 01/22-01/28, had large volume paracentesis x 2 draining ~7L, studies from that admission were not consistent with SBP, patient eloped 3 days ago on 01/28. He reportedly had stated that he was withdrawing from alcohol before leaving AMA. He was diagnosed with COVID here in a third separate admission earlier in December. He presents today not oriented, jaundiced, AOx0-1, confused, unable to answer questions. In ED, CXR, head CT without acute findings, CT A/P reports bibasilar changes consistent with COVID 19 pneumonia, small volume ascites improved from previous, distended bladder. Labs with significant abnormalities, with INR 2.5, Na 133, CO2 15, Mg 1.2, Tbili 11.8, AST 50, ammonia 132. ABG w/ significant respiratory alkalosis. Patient is awake and alert, not oriented, jaundiced, agitated and requiring close monitoring, he is not coughing. Vitals with Tmax 100 in ED, tachycardia, no hypotension. Patient clinically not showing signs of covid pneumonia, however will monitor closely on covid unit with precautions - admit to COVID wing - start empiric lactulose, resume home medications - ASE protocol w/ vitamin supplements - In ED, they attempted diagnostic paracentesis but was not enough fluid present , he was given abx for SBP ppx empirically, will continue ceftriaxone - follow cultures - trend CMP/INR # respiratory alkalosis # tachypnea # covid 19 infection # radiographic findings consistent with COVID pneumonia tachypnea and abnormal ABG, may be due to alcohol withdrawal or agitation causing rapid ventilation, has covid pneumonia on imaging but no high grade fevers, nor cough or hypoxia. - treat underlying conditions as above # hypomagnisemia - repleted in ED, trend BMP/Mg # hyponatremia - noted, trend BMP # thrombocytopenia # anemia # coagulopathy - likely due to splenic sequestration and decreased production due to cirrhosis, avoid chemical DVT prophylaxis # DVT ppx - unable to add DVT ppx due to mental state and heme issues, patient is moving a lot in bed # GI ppx - PPI Code status - unable to ask, presume full code
[2020-02-01] MEDS ORDERED: Lorazepam 2 MG/ML VIAL SLOW IVP PRN (03:35)
[2020-02-01] MEDS: Lorazepam 2 MG/ML VIAL SLOW IVP PRN ×3 (03:51→23:53)
[2020-02-01 05:23] LABS: INR-International Normal Ratio 2.4; Prothrombin Time 25.9 sec (12.0-14.7)
[2020-02-01 05:44] LABS: ALT (SGPT) 35 U/L (8-55); AST (SGOT) 45 U/L (5-34); Albumin 3.3 g/dL (3.5-5.0); Alkaline Phosphatase 118 U/L (40-110); Anion Gap 16 mmol/L (10-20); BUN (Urea Nitrogen) 9 mg/dL (8.9-20.6); Bilirubin, Direct 5.8 mg/dL (0.1-0.3); Bilirubin, Total 13.3 mg/dL (0.2-1.2); Calc. Creatinine Clearance 139 mL/min (70-130); Calcium 8.3 mg/dL (7.8-10.44); Carbon Dioxide 14 mmol/L (22-29); Chloride 111 mmol/L (98-107); Estimated GFR-MDRD Greater than 90; Glucose 87 mg/dL (70-105); Magnesium 1.8 mg/dL (1.6-2.6); Potassium 3.6 mmol/L (3.5-5.1); Protein, Total 5.8 g/dL (6.0-8.3); Sodium 137 mmol/L (136-145)
[2020-02-01 06:04] LABS: #Eosinphils 0.1 thou/uL (0.0-0.7); #Lymphocytes 1.9 thou/uL (1.20-3.40); #Monocytes 0.9 thou/uL (0.11-0.59); #Neutrophils 3.3 thou/uL (1.40-6.50); %Basophils 0.3 % (0.0-1.0); %Eosinophils 1.2 % (0.0-10.0); %Lymphocytes 30.3 % (21.0-51.0); %Monocytes 14.8 % (0.0-10.0); %Neutrophils 53.5 % (42.0-75.0); Hemoglobin 8.7 g/dL (14.0-18.0); Mean Corpuscular HGB CONC 34.1 g/dL (32.0-36.0); Mean Corpuscular Hemoglobin 36.3 pg (27.0-31.0); Mean Platelet Volume 8.2 fL (7.4-10.4); Platelet Count 36 thou/uL (130-400); RBC Distribution Width 16.6 % (11.5-14.5); Red Blood Cell (RBC) Count 2.41 mill/uL (4.70-6.10); White Blood Cell (WBC) Count 6.1 thou/uL (4.8-10.8)
[2020-02-01] MEDS ORDERED: Magnesium 2 GM/50 ML 2 GM in Premix Bag 1 BAG IVPB SCH (06:30)
[2020-02-01] MEDS: Spironolactone 100 MG TAB PO SCH (12:11)
[2020-02-01] MEDS: Multivitamin W/ Minerals 1 TAB PO SCH (12:11)
[2020-02-01] MEDS: Propranolol 10 MG TAB PO SCH (12:11)
[2020-02-01] MEDS: Furosemide 40 MG TAB PO SCH (12:11)
[2020-02-01] MEDS: Folic Acid 1 MG TAB PO SCH (12:11)
--- NOTE | 2020-02-01 12:13 | PDOC.EVN ---
Event Note - Event Note Event Note: The patient is noted to be restless and fidgety in the bed. Per nursing staff they were not able to give his morning lactulose because of his encephalopathy. However the patient has had more than 3 bowel movements. When asked how the patient was feeling he stated "I feel bad.". He reports nausea. He has not vomited. He denies chest pain or shortness of breath. He is unable to state where he is. He denies headache. Physical exam: Vitals: BP 170 systolic, tachycardic, rest of vitals unremarkable Gen: patient is restless in bed. He answers questions in one word answers. Does not open eyes much CV: sinus tachycardia Lungs: CTAB Abdomen: +BS, soft, nontender, nondistended SKin: jaundice evident Ext: no edema CT abdomen: bladder distended Chest Xray: bilateral ground glass opacities CT brain: no acute disease This is 34 year old male with decompensated cirrhosis, recently COVID + presenting with AMS #Acute hepatic encephalopathy - patient is getting standing lactulose, but due to encephalopathy will switch to rectal lactulose TID - repeat ammonia level #Decompensated cirrhosis #Transaminitis - he has had paracentesis recently, not enough fluid today - he is on ceftriaxone prophylactically - continue spironolactone and lasix - LFTs have worsened and MELD score > 26. Will consult GI today Acute respiratory alkalosis - will repeat ABG . Chest X ray shows bilateral ground glass opacities COVID + - first COVID + test 12/31 and repeat positive 01/22. - will keep on precautions for now given fever of 100 yesterdau Fever - possibly SBP vs covid - resolved. Blood cultures negative, UA negative, chest X ray shows bilateral pneumonia - continue IV ceftriaxone
[2020-02-01 13:49] LABS: Actual Bicarbonate (HCO3a) 15.5 mEq/L (22-28); Analyzer IN Cardio OR; Base Excess (BEa) -6.8 mEq/L (-2.0 to +3.0); Calcium, Ionized (arterial) 1.19 mmol/L (1.12-1.30); Hemoglobin (Hb) 8.1 g/dL (14.0-18.0); O2 Tension (PaO2), arterial 109.6 mmHg (80.0-100.0); Potassium - ABG Lab 3.43 mmol/L (3.70-5.30); pH, Arterial 7.48 (7.35-7.45)
[2020-02-01 13:50] LABS: CO2 Tension 21.2 mmHg (35.0-45.0); Puncture Site LB
--- NOTE | 2020-02-01 15:56 | CON ---
DATE OF CONSULTATION: 02/01/2020 REQUESTING PHYSICIAN: Dr. Jurado. REASON FOR CONSULTATION: Cirrhosis and encephalopathy. HISTORY OF PRESENT ILLNESS: Andrea Andrade is a 34-year-old man who was readmitted to the hospital yesterday evening just 2 days after hospital discharge. Briefly, he has a heavy history of alcohol use up until just over a month ago. He was hospitalized with COVID pneumonia within the past couple of months, briefly treated with steroids, had improved after steroid taper. He was back in the hospital earlier this week with worsening ascites and jaundice as well as presyncopal symptoms. He underwent EGD with Dr. Ayala, actually he had grade 3 esophageal varices with no stigmata of bleeding, but which Dr. Ayala banded. He had a paracentesis of 2.8 L removed and SBP was ruled out. He had a significantly elevated bilirubin to 14.5 on admission, though this had declined to less than 7 by hospital discharge. However, a couple of days later, again he was readmitted yesterday with altered mental status, essentially unresponsive to verbal stimuli. He is hemodynamically stable. There is no report of any bleeding from anywhere. His bilirubin has jumped up again. He remains coagulopathic, but afebrile with no leukocytosis. There was not enough fluid to repeat paracentesis. He has been started on empiric antibiotics as well as lactulose per rectum. Ammonia was significantly elevated on admission, with lactulose this has come down, but he still has not awakened. PAST MEDICAL HISTORY: Diabetes type 2, cirrhosis, COVID, heavy alcohol abuse up until over a month ago, esophageal varices status post banding earlier this January [address] Ayala. FAMILY HISTORY: Noncontributory. SOCIAL HISTORY: Alcohol use was heavy until recently. No smoking. No drug use. REVIEW OF SYSTEMS: Unable to obtain due to the patient's obtunded status. ALLERGIES: NO KNOWN DRUG ALLERGIES. OUTPATIENT MEDICATIONS: Per recent discharge summary, propranolol 10 mg daily, Lasix 40 mg daily, spironolactone 100 mg daily. PHYSICAL EXAMINATION: VITAL SIGNS: Temperature 97.6, pulse 102, blood pressure 118/61, 100% oxygen saturation on room air. GENERAL: He is jaundiced, lying in bed, apparently comfortably, responding to internal stimuli. He seems to respond a bit to voice, but does not communicate in any meaningful way. SKIN: Jaundiced. No rashes were palpable. EYES: Scleral icterus. ENT: Mucous membranes moist. LYMPH: No submandibular or supraclavicular lymphadenopathy. THYROID: Nontender to palpation. HEART: Regular borderline tachycardia. LUNGS: Clear to auscultation bilaterally. ABDOMEN: Nondistended. Bowel sounds are present. Nontender to palpation. The patient does not withdraw or really react in any way to deep palpation throughout the abdomen. EXTREMITIES: No peripheral edema. VESSELS: Radial pulses 2+ bilaterally. NEUROLOGIC: The patient does not follow commands. LABORATORY DATA: Hemoglobin 8.7, which is stable from recent admission. WBC only 6.1, platelets 36, which is stable from recent admission. INR 2.4, also stable from prior admission. Sodium 137, potassium 3.6, BUN 9, creatinine 0.72. Total bilirubin 13.3, this is up from recent discharge of 6.9, direct bilirubin 5.8, alkaline phosphatase 118, AST only 45, ALT only 35. Ammonia on admission was 132, down to 53 this morning. Albumin 3.3. TSH is 3.59. Urinalysis negative. Urine tox screen positive for benzodiazepines. Alcohol, salicylate and acetaminophen levels are negative. From earlier this month, hepatitis A IgM negative. Hepatitis A total antibody positive, which suggests immunity to hepatitis A. Hepatitis C antibody was positive, but HCV RNA was not detected. ASSESSMENT AND PLAN: 1. Hepatic encephalopathy. The patient had significantly elevated ammonia on admission, remains encephalopathic despite improvement in ammonia and lactulose rectal administration. I note the urine positivity for benzodiazepines, I do not see any benzos on his discharge list, which raises the question of possible surreptitious drug use. This might be contributing to his altered mental status. Would continue with the rectal lactulose administration 3 times daily until he wakes up enough to take oral, then switch to lactulose orally. At that point, would also add oral rifaximin 550 mg twice daily. 2. Decompensated cirrhosis secondary to alcohol abuse. This is in the context of recent COVID in the past month. The COVID appears to have resolved. He has significant coagulopathy with INR 2.4, but this is stable. Total bilirubin widely fluctuating, now up to over 13. Obviously, he is going to need to remain abstinent from alcohol, also once he wakes up, need to try to get a better history regarding any other drug use including benzodiazepines, which might have led to this presentation. 3. Ascites. He had a paracentesis on recent admission which was negative for SBP studies consistent with transudate from cirrhosis. He supposedly was discharged with diuretics with furosemide 40 mg daily and spironolactone 100 mg daily. 4. Esophageal varices. He had banding of several large esophageal varices upon prior admission, but there was no overt bleeding. Hemoglobin is stable. No evidence of bleeding here. Once the patient wakes up again, get him back on low dose of propranolol. Thank you for the consultation. Please call anytime with questions or concerns. Job ID: [id number]
[2020-02-02] MEDS ORDERED: cefTRIAXone\\ROCEPHIN 1 GM in Sodium Chloride 0.9% 100 ML IVPB SCH (02:00)
[2020-02-02] MEDS: Lorazepam 2 MG/ML VIAL SLOW IVP PRN (02:49)
[2020-02-02] MEDS ORDERED: Diazepam 5 MG TAB PO PRN (04:00)
[2020-02-02 05:18] LABS: INR-International Normal Ratio 2.2; Prothrombin Time 24.1 sec (12.0-14.7)
[2020-02-02 05:33] LABS: ALT (SGPT) 35 U/L (8-55); AST (SGOT) 46 U/L (5-34); Albumin 3.1 g/dL (3.5-5.0); Alkaline Phosphatase 104 U/L (40-110); Anion Gap 14 mmol/L (10-20); BUN (Urea Nitrogen) 13 mg/dL (8.9-20.6); Bilirubin, Direct 5.5 mg/dL (0.1-0.3); Bilirubin, Total 12.2 mg/dL (0.2-1.2); Calc. Creatinine Clearance 125 mL/min (70-130); Calcium 8.6 mg/dL (7.8-10.44); Carbon Dioxide 16 mmol/L (22-29); Chloride 111 mmol/L (98-107); Estimated GFR-MDRD Greater than 90; Glucose 67 mg/dL (70-105); Magnesium 1.7 mg/dL (1.6-2.6); Potassium 3.5 mmol/L (3.5-5.1); Protein, Total 5.6 g/dL (6.0-8.3); Sodium 137 mmol/L (136-145)
[2020-02-02 05:55] LABS: Hemoglobin 8.2 g/dL (14.0-18.0); MDiff Complete? YES; Mean Corpuscular HGB CONC 32.8 g/dL (32.0-36.0); Mean Corpuscular Hemoglobin 35.2 pg (27.0-31.0); Mean Platelet Volume 10.4 fL (7.4-10.4); Platelet Count 40 thou/uL (130-400); RBC Distribution Width 16.5 % (11.5-14.5); Red Blood Cell (RBC) Count 2.33 mill/uL (4.70-6.10); White Blood Cell (WBC) Count 5.3 thou/uL (4.8-10.8)
[2020-02-02 05:56] LABS: Anisocytosis SLIGHT = 6-15 cells (100X) (0-5/hpf); Band 7 % (5-11); Eosinophils 3 % (0-10); Lymphocytes 19 % (21-51); Monocytes 16 % (0-10); Neutrophil 55 % (42-75); Platelet Morphology Comment Appears Decreased
[2020-02-02] MEDS ORDERED: Magnesium 2 GM/50 ML 2 GM in Premix Bag 1 BAG IVPB SCH (06:00)
[2020-02-02] MEDS ORDERED: Potassium Chloride 20 MEQ TAB PO SCH (06:00)
[2020-02-02] MEDS: Folic Acid 1 MG TAB PO SCH (09:17)
[2020-02-02] MEDS: Thiamine 100 MG TAB PO SCH (09:17)
[2020-02-02] MEDS: Magnesium Oxide 400 MG TAB PO SCH (09:17)
[2020-02-02] MEDS: Spironolactone 100 MG TAB PO SCH (09:17)
[2020-02-02] MEDS: Propranolol 10 MG TAB PO SCH ×2 (09:17→10:53)
[2020-02-02] MEDS: Furosemide 40 MG TAB PO SCH ×2 (09:17→10:53)
[2020-02-02] MEDS: Multivitamin W/ Minerals 1 TAB PO SCH (09:17)
--- NOTE | 2020-02-02 10:51 | PRG ---
DATE OF SERVICE: 02/02/2020 SUBJECTIVE: Mr. Ball has woken up a little bit. He is able to give his name and location. He is able to answer some questions about his symptoms. He is still mildly confused. OBJECTIVE: VITAL SIGNS: Temperature 96.2, pulse 79, blood pressure 90/51, 100% oxygen saturation on room air. GENERAL: Confused, oriented to person and place. SKIN: He is jaundiced. HEART: Regular rate and rhythm. LUNGS: Clear to auscultation bilaterally. ABDOMEN: Nondistended. Bowel sounds are present. Nontender to palpation. EXTREMITIES: No peripheral edema. LABORATORY STUDIES: INR is down to 2.2. WBC 5.3, hemoglobin 8.2, platelets 40. Sodium 137, potassium 3.5, BUN 13, creatinine 0.80, glucose 67, total bilirubin down to 12.2, alkaline phosphatase 104, AST 46, ALT 35. ASSESSMENT AND PLAN: 1. Hepatic encephalopathy. The patient had significantly elevated ammonia on admission, slowly improving encephalopathy, on lactulose. I asked the patient whether he was taking lactulose at home and he says no, not sure how reliable this history is, but I would assume he was not taking it. Would continue lactulose 3 times daily orally. At this point, I would also add oral rifaximin 550 mg twice daily. 2. Decompensated cirrhosis secondary to alcohol abuse. Coagulopathy is stable with INR 2.2, total bilirubin widely fluctuating, but down a bit today. He needs to continue to remain abstinent from alcohol. 3. Ascites. He had a paracentesis on recent admission, which was negative for SBP. Continue on Lasix 40 mg daily and spironolactone 100 mg daily. 4. Esophageal varices. He had banding of several large esophageal varices on prior admission, but there was no overt bleeding. No evidence of bleeding here. He is now back on low-dose propranolol 10 mg daily. Job ID: [id number]
[2020-02-02] MEDS ORDERED: Rifaximin 550 MG TAB PO SCH ×2 (11:00→21:00)
--- NOTE | 2020-02-02 17:45 | PDOC.HOSPP ---
- Subjective Encounter Date: 02/02/20 Encounter Time: 11:00 Subjective: The patient states he had one BM today. No nausea or vomiting, no cough or SOB He hasn't gotten up today. He is oriented to the hospital, stated the month was March and year was 2019. He states he was not compliant with his medications at home for unclear reason. He lives with his son. - Objective Vital Signs & Weight: Vital Signs (12 hours) Temp Pulse Resp BP Pulse Ox 02/02/20 15:31 98.4 F 93 18 109/61 100 02/02/20 12:10 97.7 F 78 16 97/58 L 100 02/02/20 09:25 97.5 F L 105/66 02/02/20 08:30 96.2 F L 79 18 90/51 L 100 Weight Admit Weight 152 lb 4.8 oz Weight 152 lb 4.8 oz I&O: 02/01/20 02/02/20 02/03/20 06:59 06:59 06:59 Intake Total 200 387 240 Output Total 750 2100 500 Balance -297 -1713 -260 Result Diagrams: 02/02/20 04:45 02/02/20 04:45 Additional Labs: Accuchecks 02/02/20 02/01/20 02/01/20 10:58 20:28 15:47 POC Glucose 105 103 84 Hospitalist ROS - Review of Systems Constitutional: denies: fever, chills - Medication Medications: Active Medications Generic Name Dose Route Start Last Admin Trade Name Gauri PRN Reason Stop Dose Admin Folic Acid 1 mg 02/01/20 09:00 02/02/20 09:17 Folvite PO 1 mg DAILY IVÁN Administration Furosemide 40 mg 02/01/20 09:00 02/02/20 10:53 Lasix PO Not Given DAILY IVÁN Iron/Minerals/Multivitamins 1 tab 02/01/20 09:00 02/02/20 09:17 Theragran M PO 1 tab DAILY IVÁN Administration Lactulose 20 gm 02/01/20 15:00 02/02/20 15:49 Lactulose DE Not Given TID IVÁN Lactulose 20 gm 02/01/20 21:00 02/02/20 15:40 Lactulose PO 20 gm TID IVÁN Administration Lorazepam 2 mg 02/01/20 03:36 02/02/20 02:49 Ativan SLOW IVP 2 mg Q2H PRN Administration Anxiety/Agitation, alcohol w/d Magnesium Oxide 400 mg 02/02/20 09:00 02/02/20 09:17 Magnesium Oxide PO 400 mg DAILY IVÁN Administration Pantoprazole Sodium 40 mg 02/01/20 09:00 02/02/20 09:17 Protonix PO 40 mg DAILY IVÁN Administration Propranolol HCl 10 mg 02/01/20 09:00 02/02/20 10:53 Inderal PO Not Given DAILY IVÁN Spironolactone 100 mg 02/01/20 08:00 02/02/20 09:17 Aldactone PO 100 mg QAM-WM IVÁN Administration Thiamine HCl 100 mg 02/02/20 09:00 02/02/20 09:17 Thiamine PO 100 mg DAILY IVÁN Administration - Exam General Appearance: NAD, awake alert General - other findings: intermittently drowsy Eye: PERRL, anicteric sclera ENT: normocephalic atraumatic, no oropharyngeal lesions Neck: no JVD Heart: RRR, no murmur, no gallops, no rubs Respiratory: CTAB, no wheezes, no rales, no ronchi Gastrointestinal: soft, non-tender, non-distended, normal bowel sounds Extremities: no cyanosis, no clubbing, no edema Skin: normal turgor, no lesions, no rashes Neurological: cranial nerve grossly intact, normal sensation to touch, no focal deficits, no new deficit Musculoskeletal: normal tone, normal strength, no muscle wasting Hosp A/P - Plan This is 34 year old male with decompensated cirrhosis, recently COVID + presenting with AMS #Acute hepatic encephalopathy - patient is getting standing lactulose, only one BM today - repeat ammonia level has improved, but still confused - rifaximin added today #Decompensated cirrhosis #Transaminitis - he has had paracentesis recently, not enough fluid today - he is on ceftriaxone prophylactically - continue spironolactone and lasix - LFTs have worsened and MELD score > 26. LFt has improved slightly today. GI Consulted Acute respiratory alkalosis - improved on ABG . Chest X ray shows bilateral ground glass opacities. Will monitor COVID + - first COVID + test 12/31 and repeat positive 01/22. - will repeat COVID test Fever - possibly SBP - resolved. Blood cultures negative, UA negative, chest X ray shows bilateral pneumonia - continue IV ceftriaxone. Had COVID recently, will retest
[2020-02-03] MEDS: Lorazepam 2 MG/ML VIAL SLOW IVP PRN ×2 (01:34→05:28)
[2020-02-03 05:17] LABS: INR-International Normal Ratio 2.1; Prothrombin Time 23.8 sec (12.0-14.7)
[2020-02-03 05:52] LABS: Hemoglobin 8.6 g/dL (14.0-18.0); Mean Corpuscular HGB CONC 32.3 g/dL (32.0-36.0); Mean Corpuscular Hemoglobin 34.5 pg (27.0-31.0); Mean Platelet Volume 9.5 fL (7.4-10.4); Platelet Count 40 thou/uL (130-400); RBC Distribution Width 16.4 % (11.5-14.5); Red Blood Cell (RBC) Count 2.49 mill/uL (4.70-6.10); White Blood Cell (WBC) Count 4.7 thou/uL (4.8-10.8)
[2020-02-03 06:00] LABS: ALT (SGPT) 36 U/L (8-55); AST (SGOT) 49 U/L (5-34); Albumin 3.2 g/dL (3.5-5.0); Alkaline Phosphatase 114 U/L (40-110); Anion Gap 12 mmol/L (10-20); BUN (Urea Nitrogen) 13 mg/dL (8.9-20.6); Calc. Creatinine Clearance 131 mL/min (70-130); Calcium 8.5 mg/dL (7.8-10.44); Carbon Dioxide 18 mmol/L (22-29); Chloride 111 mmol/L (98-107); Estimated GFR-MDRD Greater than 90; Glucose 78 mg/dL (70-105); Magnesium 1.7 mg/dL (1.6-2.6); Potassium 3.7 mmol/L (3.5-5.1); Sodium 137 mmol/L (136-145)
[2020-02-03] MEDS ORDERED: Magnesium 2 GM/50 ML 2 GM in Premix Bag 1 BAG IVPB SCH (06:15)
[2020-02-03 06:17] LABS: Band 1 % (5-11); Eosinophils 1 % (0-10); Lymphocytes 36 % (21-51); MDiff Complete? YES; Macrocytosis SLIGHT = 6-15 cells (100X) (0-5/hpf); Monocytes 12 % (0-10); Neutrophil 50 % (42-75); Platelet Morphology Comment Appears Decreased
[2020-02-03] MEDS: cefTRIAXone\\ROCEPHIN 1 GM in Sodium Chloride 0.9% 100 ML IVPB SCH (08:48)
[2020-02-03] MEDS: Multivitamin W/ Minerals 1 TAB PO SCH (08:49)
[2020-02-03] MEDS: Propranolol 10 MG TAB PO SCH (08:49)
[2020-02-03] MEDS: Thiamine 100 MG TAB PO SCH (08:49)
[2020-02-03] MEDS: Spironolactone 100 MG TAB PO SCH (08:49)
[2020-02-03] MEDS: Magnesium Oxide 400 MG TAB PO SCH (08:49)
[2020-02-03] MEDS: Furosemide 40 MG TAB PO SCH (08:49)
[2020-02-03] MEDS: Folic Acid 1 MG TAB PO SCH (08:49)
[2020-02-03 15:35] LABS: SARS-CoV-2 MS2 Negative; SARS-CoV-2 N Gene Positive; SARS-CoV-2 S Gene Positive; SARS-CoV-2 by NAA DETECTED (NotDetected); SARS-CoV-2 orf1ab Positive
--- NOTE | 2020-02-03 17:35 | PDOC.HOSPP ---
- Subjective Encounter Date: 02/03/20 Encounter Time: 14:00 Subjective: The patient has no complaints. He has no abdominal pain nausea or vomiting . He states date is the , month is March. Year per nurse was wrong. Patient states the president is Tyree March He state he has a in [place], although per nursing he has a fiance he did have three bowel movements this morning - Objective Vital Signs & Weight: Vital Signs (12 hours) Temp Pulse Resp BP BP BP Pulse Ox 02/03/20 15:49 94/59 L 02/03/20 14:32 97.7 F 91 20 93/53 L 99 02/03/20 12:08 97.7 F 87 18 109/68 100 02/03/20 08:20 98.1 F 97 18 116/58 L 100 Pulse Ox 02/03/20 15:49 100 02/03/20 14:32 02/03/20 12:08 02/03/20 08:20 Weight Admit Weight 152 lb 4.8 oz Weight 152 lb 4.8 oz I&O: 02/02/20 02/03/20 02/04/20 06:59 06:59 06:59 Intake Total 387 862 Output Total 2100 875 805 [facility] -1713 -13 -805 Result Diagrams: 02/03/20 04:37 02/03/20 04:37 Additional Labs: Accuchecks 02/03/20 02/03/20 02/03/20 16:25 11:53 06:03 POC Glucose 152 H 182 H 76 02/02/20 02/02/20 21:00 17:06 POC Glucose 115 H 102 Hospitalist ROS - Review of Systems Constitutional: denies: fever, chills - Medication Medications: Active Medications Generic Name Dose Route Start Last Admin Trade Name Freq PRN Reason Stop Dose Admin Folic Acid 1 mg 02/01/20 09:00 02/03/20 08:49 Folvite PO 1 mg DAILY IVÁN Administration Furosemide 40 mg 02/01/20 09:00 02/03/20 08:49 Lasix PO 40 mg DAILY IVÁN Administration Ceftriaxone Sodium 1 gm/ 100 mls @ 200 mls/hr 02/03/20 09:00 02/03/20 08:48 Sodium Chloride IVPB 100 mls 0900 IVÁN Administration Iron/Minerals/Multivitamins 1 tab 02/01/20 09:00 02/03/20 08:49 Theragran M PO 1 tab DAILY IVÁN Administration Lactulose 20 gm 02/01/20 15:00 02/03/20 13:47 Lactulose UT Not Given TID IVÁN Lactulose 20 gm 02/01/20 21:00 02/03/20 11:38 Lactulose PO 20 gm TID IVÁN Administration Lorazepam 2 mg 02/01/20 03:36 02/03/20 05:28 Ativan SLOW IVP 2 mg Q2H PRN Administration Anxiety/Agitation, alcohol w/d Magnesium Oxide 400 mg 02/02/20 09:00 02/03/20 08:49 Magnesium Oxide PO 400 mg DAILY IVÁN Administration Pantoprazole Sodium 40 mg 02/01/20 09:00 02/03/20 08:49 Protonix PO 40 mg DAILY IVÁN Administration Propranolol HCl 10 mg 02/01/20 09:00 02/03/20 08:49 Inderal PO 10 mg DAILY IVÁN Administration Spironolactone 100 mg 02/01/20 08:00 02/03/20 08:49 Aldactone PO 100 mg QAM-WM IVÁN Administration Thiamine HCl 100 mg 02/02/20 09:00 02/03/20 08:49 Thiamine PO 100 mg DAILY IVÁN Administration - Exam General Appearance: NAD, awake alert Eye: PERRL, scleral icterus Eye - other findings: both eye s ENT: normocephalic atraumatic, no oropharyngeal lesions Neck: no JVD Heart: RRR, no murmur, no gallops, no rubs Respiratory: CTAB, no wheezes, no rales, no ronchi Gastrointestinal: soft, non-tender, non-distended, normal bowel sounds Extremities: no cyanosis, no clubbing, no edema Skin: no lesions, no rashes Skin - other findings: jaundiced Neurological: cranial nerve grossly intact, normal sensation to touch, no focal deficits, no new deficit Musculoskeletal: normal tone, normal strength, no muscle wasting Psychiatric: normal affect, normal behavior, oriented to person Psychiatric - other findings: oriented to date, not month or abiodun Hosp A/P - Plan This is 34 year old male with decompensated cirrhosis, recently COVID + presenting with AMS #Acute hepatic encephalopathy - patient is getting standing lactulose, had three BM today but still confused - continue rifaximin - appreciate GI recs - patient is unable to take care of himself. I anticipate he will need some kind of home health but he is unfunded unfortunately #Decompensated cirrhosis #Transaminitis - he has had paracentesis recently, not enough fluid to have redrawn - continue empiric ceftriaxone - continue spironolactone and lasix - LFT are improving and bilirubin is improving Acute respiratory alkalosis - improved on ABG . Chest X ray shows bilateral ground glass opacities. Will monitor. Repeat COVID swab positive COVID + - first COVID + test 12/31 and repeat positive 01/22. Repeat positive. I will d/c isolation though since afebrile Fever - resolved - resolved. Blood cultures negative, UA negative, chest X ray shows bilateral pneumonia likely from old cOVID infection - continue IV ceftriaxone.
--- NOTE | 2020-02-04 00:24 | PRG ---
DATE OF SERVICE: 02/03/2020 SUBJECTIVE: Mr. Andrade is sleepy, but does arouse to stimulation. He is oriented to his name. He states the wrong location. He has had 6 bowel movements today so far. OBJECTIVE: VITAL SIGNS: Temperature 97.7, pulse 91, and blood pressure 94/59. GENERAL: He is sleepy, oriented to his name. LUNGS: Clear to auscultation bilaterally. HEART: Regular rate and rhythm without murmur. ABDOMEN: Soft, nontender, and nondistended. Bowel sounds are present. EXTREMITIES: No lower extremity edema. LABORATORY DATA: White blood cell count 4.7, hemoglobin 8.6, platelets 40,000. INR 2.1. Bilirubin 10.0. AST 49, ALT 36, alkaline phosphatase 114, and albumin 3.2. IMPRESSION: 1. Decompensated cirrhosis of the liver with elevated bilirubin and INR and low albumin. He has esophageal varices and encephalopathy. 2. Hepatic encephalopathy. This is a primary reason for admission at this time. He remains sleepy and confused despite having had 6 bowel movements today with the lactulose. 3. Esophageal varices without further overt bleeding this hospital stay. He did undergo banding of his esophageal varices on 01/24/2020. RECOMMENDATIONS: 1. We will try to continue the higher dose lactulose, however, if his confusion persists beyond that, then we will need to consider other causes of altered mental status as well. 2. Xifaxan. 3. He is on ceftriaxone. 4. He is on propranolol. 5. He remains on spironolactone and furosemide. 6. He is on thiamine. 7. Dr. Ayala will be rounding tomorrow. Job ID: [id number]
[2020-02-04 04:43] LABS: Mean Corpuscular HGB CONC 33.5 g/dL (32.0-36.0); Mean Corpuscular Hemoglobin 34.9 pg (27.0-31.0); Mean Platelet Volume 8.7 fL (7.4-10.4); Platelet Count 55 thou/uL (130-400); RBC Distribution Width 16.2 % (11.5-14.5); Red Blood Cell (RBC) Count 2.57 mill/uL (4.70-6.10); White Blood Cell (WBC) Count 6.5 thou/uL (4.8-10.8)
[2020-02-04 05:48] LABS: ALT (SGPT) 34 U/L (8-55); AST (SGOT) 51 U/L (5-34); Albumin 3.3 g/dL (3.5-5.0); Alkaline Phosphatase 135 U/L (40-110); Anion Gap 13 mmol/L (10-20); BUN (Urea Nitrogen) 16 mg/dL (8.9-20.6); Bilirubin, Total 8.1 mg/dL (0.2-1.2); Calc. Creatinine Clearance 92 mL/min (70-130); Calcium 8.5 mg/dL (7.8-10.44); Carbon Dioxide 19 mmol/L (22-29); Chloride 110 mmol/L (98-107); Estimated GFR-MDRD 77; Globulin 3.3 g/dL (2.4-3.5); Glucose 129 mg/dL (70-105); Potassium 3.8 mmol/L (3.5-5.1); Protein, Total 6.6 g/dL (6.0-8.3); Sodium 138 mmol/L (136-145)
[2020-02-04] MEDS: Spironolactone 100 MG TAB PO SCH (09:02)
[2020-02-04] MEDS: cefTRIAXone\\ROCEPHIN 1 GM in Sodium Chloride 0.9% 100 ML IVPB SCH (09:02)
[2020-02-04] MEDS: Thiamine 100 MG TAB PO SCH (09:03)
[2020-02-04] MEDS: Magnesium Oxide 400 MG TAB PO SCH (09:03)
[2020-02-04] MEDS: Multivitamin W/ Minerals 1 TAB PO SCH (09:03)
[2020-02-04] MEDS: Furosemide 40 MG TAB PO SCH (09:03)
[2020-02-04] MEDS: Folic Acid 1 MG TAB PO SCH (09:03)
[2020-02-04] MEDS: Propranolol 10 MG TAB PO SCH (09:03)
--- NOTE | 2020-02-04 15:46 | PDOC.HOSPP ---
- Subjective Encounter Date: 02/04/20 Encounter Time: 10:00 Subjective: The patient has no complaints. No nausea or vomiting. He states he wants to go home. 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 He had two this morning Patient initially couldn't say the year but when I checked on him two hours later he was oriented to hospital, year and month. He states his 's name is Jany Discussed with jany, who stated patient lost his discharge packet when he left the hospital and was told that he only had vitamins. He was not aware of any diuretics. brought him here due to progressive dyspnea and abdominal distension. Patient's states she plans on moving in with him and takin care of him The patient was later found down on the floor, states that he got up and was tryin to use the bathroom. He refused to get off the floor for approximately twenty minutes. He is noted to be very unsteady while walking - Objective Vital Signs & Weight: Vital Signs (12 hours) Temp Pulse Resp BP BP BP Pulse Ox 02/04/20 15:30 99.1 F 86 16 103/68 103/68 100 02/04/20 12:00 98.2 F 80 16 157/106 H 157/106 H 98 02/04/20 09:00 100/58 L 02/04/20 07:56 98.4 F 95 16 100/58 L 100 02/04/20 04:00 103/54 L Weight Admit Weight 152 lb 4.8 oz Weight 152 lb 4.8 oz I&O: 02/03/20 02/04/20 02/05/20 06:59 06:59 06:59 Intake Total 862 120 Output Total 875 1480 200 Balance -13 -1360 -200 Result Diagrams: 02/04/20 04:16 02/04/20 04:15 Additional Labs: Accuchecks 02/03/20 02/03/20 20:33 16:25 POC Glucose 136 H 152 H Hospitalist ROS - Review of Systems Constitutional: denies: fever, chills - Medication Medications: Active Medications Generic Name Dose Route Start Last Admin Trade Name Freq PRN Reason Stop Dose Admin Folic Acid 1 mg 02/01/20 09:00 02/04/20 09:03 Folvite PO 1 mg DAILY IVÁN Administration Furosemide 40 mg 02/01/20 09:00 02/04/20 09:03 Lasix PO 40 mg DAILY IVÁN Administration Ceftriaxone Sodium 1 gm/ 100 mls @ 200 mls/hr 02/03/20 09:00 02/04/20 09:02 Sodium Chloride IVPB 100 mls 0900 IVÁN Administration Iron/Minerals/Multivitamins 1 tab 02/01/20 09:00 02/04/20 09:03 Theragran M PO 1 tab DAILY IVÁN Administration Lactulose 30 gm 02/03/20 21:00 02/04/20 09:04 Lactulose PO 30 gm TID IVÁN Administration Lorazepam 2 mg 02/01/20 03:36 02/03/20 05:28 Ativan SLOW IVP 2 mg Q2H PRN Administration Anxiety/Agitation, alcohol w/d Magnesium Oxide 400 mg 02/02/20 09:00 02/04/20 09:03 Magnesium Oxide PO 400 mg DAILY IVÁN Administration Pantoprazole Sodium 40 mg 02/01/20 09:00 02/04/20 09:03 Protonix PO 40 mg DAILY IVÁN Administration Propranolol HCl 10 mg 02/01/20 09:00 02/04/20 09:03 Inderal PO 10 mg DAILY IVÁN Administration Sodium Chloride 10 ml 02/01/20 03:38 02/03/20 20:34 Flush - Normal Saline IVF 10 ml PRN PRN Administration Saline Flush Spironolactone 100 mg 02/01/20 08:00 02/04/20 09:02 Aldactone PO 100 mg QAM-WM IVÁN Administration Thiamine HCl 100 mg 02/02/20 09:00 02/04/20 09:03 Thiamine PO 100 mg DAILY IVNÁ Administration - Exam General Appearance: NAD, awake alert Eye: PERRL Eye - other findings: scleral icterus ENT: normocephalic atraumatic, no oropharyngeal lesions Neck: supple, symmetric, no JVD, no thyromegaly Heart: RRR, no murmur, no gallops, no rubs Respiratory: CTAB, no wheezes, no rales, no ronchi Gastrointestinal: soft, non-tender, non-distended, normal bowel sounds Extremities: no cyanosis, no clubbing, no edema Skin: normal turgor, no lesions, no rashes Skin - other findings: jaundiced Neurological: cranial nerve grossly intact, normal sensation to touch, no focal deficits, no new deficit Neurological - other findings: unsteady gait Musculoskeletal: normal tone, normal strength, no muscle wasting Psychiatric: A&O x 3, flat affect Psychiatric - other findings: answers questions slowly Hosp A/P - Plan This is 34 year old male with decompensated cirrhosis, recently COVID + presenting with AMS #Acute hepatic encephalopathy - patient is getting standing lactulose. Lactulose dose was increased to 30 mg tid - continue rifaximin - titrate BM to 3-5 bowel movements daily #Decompensated cirrhosis #Transaminitis - he has had paracentesis recently, not enough fluid to have redrawn - continue ceftriaxone for five days - continue spironolactone and lasix - LFT are improving and bilirubin is improving to 8 Acute respiratory alkalosis - improved on ABG . Chest X ray shows bilateral ground glass opacities. Will monitor. Repeat COVID swab positive COVID + - first COVID + test 12/31 and repeat positive 01/22. Repeat positive. I will d/c isolation though since afebrile Fever - resolved - resolved. Blood cultures negative, UA negative, chest X ray shows bilateral pneumonia likely from old cOVID infection - getting IV ceftriaxone x 5 days
--- NOTE | 2020-02-04 18:50 | PRG ---
DATE OF SERVICE: 02/04/2020 SUBJECTIVE: Mr. Cabellos encephalopathy has persisted and is little better today. His is talking to his sister. He has been eating some. He last received Ativan yesterday on . He is receiving lactulose 3 times a day. He has not received any Phenergan or cough medicine from I can tell. OBJECTIVE: VITAL SIGNS: Temperature 98, pulse is 90, blood pressure 107/70. GENERAL: He is icteric. He is in bed. He knows he is in the hospital. He is sleepy, but arousable. LUNGS: Clear. HEART: Regular without murmurs. ABDOMEN: No ascites. In fact, his abdomen is very soft. He has hepatomegaly. EXTREMITIES: Reveal no edema. In fact, he has some tenting. LABORATORY DATA: Sodium 138, potassium 3.8, BUN and creatinine are 16 and 1.08. AST is 51 down from 142 in December, ALT is 34 down from 67 in January 31, bilirubin is 8.1 down from a high of 14. Ammonia was 64 today. ASSESSMENT: 1. Hepatic encephalopathy. He is probably being exacerbated by the fact he is receiving Ativan as recently as yesterday. He has been probably a little bit over diuresed as well as his weight is 152 and was as high as 172 on 01/27 and 190 on 01/25. 2. Alcoholic liver disease, slightly improved. RECOMMENDATION: 1. Hold diuretics for 24 hours, then resume at 20 mg of furosemide and 50 mg of spironolactone. 2. Stop all Ativan, NSAIDs, and sleep aids. 3. Have eliminated Phenergan and from his p.r.n. medication list. 4. Titrate lactulose 3 to 5 ounce a day. 5. Add Xifaxan b.i.d. Job ID: [id number]
[2020-02-04] MEDS: Rifaximin 550 MG TAB PO SCH ×2 (20:02→21:30)
[2020-02-04] MEDS: HumaLOG 300 UNITS/3 ML VIAL SC PRN (20:12)
[2020-02-04] MEDS: Lorazepam 2 MG/ML VIAL SLOW IVP PRN (21:42)
[2020-02-05 05:56] LABS: Hemoglobin 8.9 g/dL (14.0-18.0); Mean Corpuscular HGB CONC 33.4 g/dL (32.0-36.0); Mean Corpuscular Hemoglobin 34.7 pg (27.0-31.0); Mean Platelet Volume 8.6 fL (7.4-10.4); Platelet Count 53 thou/uL (130-400); RBC Distribution Width 16.1 % (11.5-14.5); Red Blood Cell (RBC) Count 2.55 mill/uL (4.70-6.10); White Blood Cell (WBC) Count 6.5 thou/uL (4.8-10.8)
[2020-02-05 06:10] LABS: ALT (SGPT) 38 U/L (8-55); AST (SGOT) 52 U/L (5-34); Albumin 3.3 g/dL (3.5-5.0); Alcohol Less than 10 mg/dL (Less than 10); Alkaline Phosphatase 154 U/L (40-110); Anion Gap 13 mmol/L (10-20); BUN (Urea Nitrogen) 20 mg/dL (8.9-20.6); Bilirubin, Total 6.7 mg/dL (0.2-1.2); Calc. Creatinine Clearance 99 mL/min (70-130); Calcium 8.5 mg/dL (7.8-10.44); Carbon Dioxide 19 mmol/L (22-29); Chloride 109 mmol/L (98-107); Estimated GFR-MDRD 84; Globulin 3.2 g/dL (2.4-3.5); Glucose 118 mg/dL (70-105); Potassium 3.9 mmol/L (3.5-5.1); Protein, Total 6.5 g/dL (6.0-8.3); Sodium 137 mmol/L (136-145)
[2020-02-05] MEDS ORDERED: Spironolactone 25 MG TAB PO SCH (08:00)
[2020-02-05] MEDS: Rifaximin 550 MG TAB PO SCH ×2 (08:50→22:17)
[2020-02-05] MEDS: Magnesium Oxide 400 MG TAB PO SCH (08:50)
[2020-02-05] MEDS: Multivitamin W/ Minerals 1 TAB PO SCH (08:50)
[2020-02-05] MEDS: Folic Acid 1 MG TAB PO SCH (08:52)
[2020-02-05] MEDS: Thiamine 100 MG TAB PO SCH (08:53)
[2020-02-05] MEDS: cefTRIAXone\\ROCEPHIN 1 GM in Sodium Chloride 0.9% 100 ML IVPB SCH (08:53)
[2020-02-05] MEDS: Propranolol 10 MG TAB PO SCH (13:25)
--- NOTE | 2020-02-05 16:50 | PRG ---
DATE OF SERVICE: 02/05/2020 REASON FOR CONSULTATION: Hepatic encephalopathy, cirrhosis with ascites. SUBJECTIVE: Today, the patient states that he is doing well with no acute events or problems overnight, which was echoed by the nursing staff. Currently, he states that he is very anxious to get home and would like to be discharged from the hospital as soon as possible. However, later in the day, the patient did exhibit alteration in his sensorium and was only alert and oriented x2, raising suspicion for delirium. Otherwise, the patient has been receiving lactulose well and has had approximately 2 semi-solid liquid bowel movements . Currently, he denies any nausea, vomiting, fevers, chills, abdominal pain, hematemesis, melena, or hematochezia. OBJECTIVE: VITAL SIGNS: Temperature 97.8, pulse 95, blood pressure 94/63, respiratory rate 16, saturating 100% on room air. GENERAL: The patient is lying in bed, in no acute distress. Alert and oriented x3. Burkin[place]-speaking only. CARDIOVASCULAR: Regular rate and rhythm. RESPIRATORY: Clear to auscultation bilaterally. ABDOMEN: Normoactive bowel sounds. Soft, nontender, nondistended. Negative shifting dullness. EXTREMITIES: No cyanosis, clubbing, or edema. LABORATORY DATA: CBC with a white blood cell count of 6.5, hemoglobin 8.9, hematocrit 26.5, platelets 53. Chemistry with a sodium of 137, potassium 3.9, chloride 109, CO2 of 19, BUN 20, creatinine 1.01, glucose 118, AST 52, ALT 38, alkaline phosphatase 154, total bilirubin 6.7, and albumin 3.3. IMAGING DATA: No current GI imaging is available for review. ASSESSMENT: 1. Hepatic encephalopathy. The patient initially presented with altered mental status, most likely due to over diuresis with spironolactone/furosemide as evidenced by acute kidney injury and sudden decrease in both his ascites and lower extremity edema on physical examination. Currently responding well to lactulose and rifaximin, although he does have some waxing/waning sensorium, raising the concern for hospital delirium. 2. Alcoholic liver disease, improved. RECOMMENDATIONS: 1. We would continue to hold his diuretics for the next 24 hours, then restart the spironolactone at 50 mg daily and the furosemide at 20 mg daily. 2. We would avoid any sedating medications during this hospitalization including Ativan, sleep aids. 3. We would avoid anticoagulation or NSAIDs. 4. We would continue lactulose and rifaximin 550 mg b.i.d. with a goal of having approximately 3 to 4 bowel movements per day. We will continue to follow. Please call with any questions. Job ID: [id number]
--- NOTE | 2020-02-05 17:16 | PDOC.HOSPP ---
- Subjective Encounter Date: 02/05/20 Encounter Time: 13:00 Subjective: THe patient has no complaints . WHen asked what his date was, he states 1985 which is his birthday. He denies headache. He was on the phone trying to call his and states that it was not in service. Per nursing, he wasn't dialing his 's number and just pressing the call button He had 6 bowel movements overnight He did receive ativan overnight - Objective Vital Signs & Weight: Vital Signs (12 hours) Temp Pulse Resp BP BP Pulse Ox 02/05/20 16:15 97.8 F 95 16 94/63 100 02/05/20 12:00 97/65 02/05/20 11:28 98.7 F 95 16 97/65 100 02/05/20 08:00 92/61 100 02/05/20 07:22 97.8 F 92 92/61 100 Weight Admit Weight 152 lb 4.8 oz Weight 152 lb 4.8 oz I&O: 02/04/20 02/05/20 02/06/20 06:59 06:59 06:59 Intake Total 120 Output Total 1480 200 Balance -1360 -200 Result Diagrams: 02/05/20 05:27 02/05/20 05:27 Additional Labs: Accuchecks 02/05/20 02/05/20 02/05/20 15:54 11:28 04:20 POC Glucose 162 H 157 H 151 H 02/04/20 20:06 POC Glucose 209 H Hospitalist ROS - Review of Systems Constitutional: denies: fever, chills - Medication Medications: Active Medications Generic Name Dose Route Start Last Admin Trade Name Gauri PRN Reason Stop Dose Admin Folic Acid 1 mg 02/01/20 09:00 02/05/20 08:52 Folvite PO 1 mg DAILY IVÁN Administration Ceftriaxone Sodium 1 gm/ 100 mls @ 200 mls/hr 02/03/20 09:00 02/05/20 08:53 Sodium Chloride IVPB 100 mls 0900 IVÁN Administration Insulin Human Lispro 0 units 02/01/20 01:34 02/04/20 20:12 Humalog SC 3 unit .MILD SLIDING SCALE PRN Administration Mild Correctional Scale Iron/Minerals/Multivitamins 1 tab 02/01/20 09:00 02/05/20 08:50 Theragran M PO 1 tab DAILY IVÁN Administration Lactulose 30 gm 02/03/20 21:00 02/05/20 17:06 Lactulose PO 30 gm TID IVÁN Administration Lorazepam 2 mg 02/01/20 03:36 02/04/20 21:42 Ativan SLOW IVP 2 mg Q2H PRN Administration Anxiety/Agitation, alcohol w/d Magnesium Oxide 400 mg 02/02/20 09:00 02/05/20 08:50 Magnesium Oxide PO 400 mg DAILY IVÁN Administration Pantoprazole Sodium 40 mg 02/01/20 09:00 02/05/20 08:51 Protonix PO 40 mg DAILY IVÁN Administration Propranolol HCl 10 mg 02/01/20 09:00 02/05/20 13:25 Inderal PO 10 mg DAILY IVÁN Administration Rifaximin 550 mg 02/04/20 21:00 02/05/20 08:50 Xifaxan PO 550 mg BID IVÁN Administration Sodium Chloride 10 ml 02/01/20 03:38 02/03/20 20:34 Flush - Normal Saline IVF 10 ml PRN PRN Administration Saline Flush Thiamine HCl 100 mg 02/02/20 09:00 02/05/20 08:53 Thiamine PO 100 mg DAILY IVÁN Administration - Exam General Appearance: NAD, awake alert Eye: PERRL, anicteric sclera ENT: normocephalic atraumatic Neck: supple, no JVD Heart: RRR, no murmur, no gallops, no rubs Respiratory: CTAB, no wheezes, no rales, no ronchi Gastrointestinal: soft, non-tender, non-distended, normal bowel sounds Gastrointestinal - other findings: jaundice Extremities: no cyanosis, no clubbing, no edema Skin: normal turgor, no lesions, no rashes Skin - other findings: scleral icterus Neurological: cranial nerve grossly intact, normal sensation to touch, no weakness Musculoskeletal: normal tone, normal strength, no muscle wasting Psychiatric: normal affect, normal behavior, A&O x 3 Hosp A/P - Plan This is 34 year old male with decompensated cirrhosis, recently COVID + presenting with AMS #Acute hepatic encephalopathy - patient was getting standing lactulose. Lactulose dose was increased to 30 mg tid -lactulose to be titrated to 3-5 BM daily -ammonia level was 132, improved to the 50's and increased to 64 #Decompensated cirrhosis #Transaminitis - he has had paracentesis recently, not enough fluid to have redrawn this admission - continue ceftriaxone for five days, has received three days so far - spironolactone and lasix has been on hold, plan to resume tomorrow - LFTS downtrending - started on inderal for esophageal varices prophylaxis Acute respiratory alkalosis - ph 7.4 and bicarb 21. Chest X ray shows bilateral ground glass opacities. Not tachypneic anymore COVID + - first COVID + test 12/31 and repeat positive 01/22. Repeat positive. COVID isolation removed Fever - resolved - resolved. Blood cultures negative, UA negative, chest X ray shows bilateral pneumonia likely from old cOVID infection - getting IV ceftriaxone x 5 days for empiric SBP prophylaxis
[2020-02-06 05:41] LABS: Hemoglobin 8.6 g/dL (14.0-18.0); Mean Corpuscular Hemoglobin 35.3 pg (27.0-31.0); Mean Platelet Volume 8.4 fL (7.4-10.4); Platelet Count 54 thou/uL (130-400); RBC Distribution Width 16.1 % (11.5-14.5); Red Blood Cell (RBC) Count 2.43 mill/uL (4.70-6.10); White Blood Cell (WBC) Count 6.4 thou/uL (4.8-10.8)
[2020-02-06 05:42] LABS: INR-International Normal Ratio 2.2; Prothrombin Time 24.7 sec (12.0-14.7)
[2020-02-06 06:04] LABS: ALT (SGPT) 40 U/L (8-55); AST (SGOT) 79 U/L (5-34); Albumin 2.7 g/dL (3.5-5.0); Alkaline Phosphatase 166 U/L (40-110); Anion Gap 15 mmol/L (10-20); BUN (Urea Nitrogen) 21 mg/dL (8.9-20.6); Bilirubin, Total 5.2 mg/dL (0.2-1.2); Calc. Creatinine Clearance 120 mL/min (70-130); Calcium 8.3 mg/dL (7.8-10.44); Carbon Dioxide 13 mmol/L (22-29); Chloride 107 mmol/L (98-107); Estimated GFR-MDRD Greater than 90; Globulin 3.6 g/dL (2.4-3.5); Glucose 129 mg/dL (70-105); Potassium 4.2 mmol/L (3.5-5.1); Protein, Total 6.3 g/dL (6.0-8.3); Sodium 131 mmol/L (136-145)
[2020-02-06] MEDS: Thiamine 100 MG TAB PO SCH (09:25)
[2020-02-06] MEDS: Folic Acid 1 MG TAB PO SCH (09:25)
[2020-02-06] MEDS: Multivitamin W/ Minerals 1 TAB PO SCH (09:25)
[2020-02-06] MEDS: Rifaximin 550 MG TAB PO SCH ×2 (09:25→22:16)
[2020-02-06] MEDS: Magnesium Oxide 400 MG TAB PO SCH (09:26)
[2020-02-06] MEDS: cefTRIAXone\\ROCEPHIN 1 GM in Sodium Chloride 0.9% 100 ML IVPB SCH (09:27)
[2020-02-06] MEDS: Propranolol 10 MG TAB PO SCH (11:35)
[2020-02-06] MEDS ORDERED: Spironolactone 25 MG TAB PO SCH ×2 (15:30→22:45)
[2020-02-06] MEDS: HumaLOG 300 UNITS/3 ML VIAL SC PRN (17:20)
--- NOTE | 2020-02-06 18:30 | PDOC.HOSPP ---
- Subjective Encounter Date: 02/06/20 Encounter Time: 10:00 Subjective: The patient is oriented times three today. He has no complaints .BP on the lower side, initially inderal was held. Spironolactone was resumed at half the dose Patient had 6 bowel movements overnight and two this morning - Objective Vital Signs & Weight: Vital Signs (12 hours) Temp Pulse Resp BP BP BP BP 02/06/20 16:00 97.8 F 94 20 97/62 02/06/20 15:06 95 90/57 L 02/06/20 11:00 98.1 F 95 20 98/63 02/06/20 08:00 94/60 02/06/20 07:41 97.8 F 99 20 94/60 Pulse Ox 02/06/20 16:00 100 02/06/20 15:06 02/06/20 11:00 100 02/06/20 08:00 97 02/06/20 07:41 97 Weight Admit Weight 152 lb 4.8 oz Weight 152 lb 4.8 oz I&O: 02/05/20 02/06/20 02/07/20 06:59 06:59 06:59 Intake Total 1500 Output Total 200 Balance -200 1500 Result Diagrams: 02/06/20 05:18 02/06/20 05:18 Additional Labs: Accuchecks 02/06/20 02/06/20 02/06/20 16:22 10:48 06:24 POC Glucose 251 H 133 H 131 H 02/05/20 20:21 POC Glucose 161 H Hospitalist ROS - Review of Systems Constitutional: denies: fever, chills - Medication Medications: Active Medications Generic Name Dose Route Start Last Admin Trade Name Freddieq PRN Reason Stop Dose Admin Folic Acid 1 mg 02/01/20 09:00 02/06/20 09:25 Folvite PO 1 mg DAILY IVÁN Administration Ceftriaxone Sodium 1 gm/ 100 mls @ 200 mls/hr 02/03/20 09:00 02/06/20 09:27 Sodium Chloride IVPB 100 mls 0900 IVÁN Administration Insulin Human Lispro 0 units 02/01/20 01:34 02/06/20 17:20 Humalog SC 4 unit .MILD SLIDING SCALE PRN Administration Mild Correctional Scale Iron/Minerals/Multivitamins 1 tab 02/01/20 09:00 02/06/20 09:25 Theragran M PO 1 tab DAILY IVÁN Administration Lactulose 30 gm 02/03/20 21:00 02/06/20 15:04 Lactulose PO 30 gm TID IVÁN Administration Magnesium Oxide 400 mg 02/02/20 09:00 02/06/20 09:26 Magnesium Oxide PO 400 mg DAILY IVÁN Administration Pantoprazole Sodium 40 mg 02/01/20 09:00 02/06/20 09:27 Protonix PO 40 mg DAILY IVÁN Administration Propranolol HCl 10 mg 02/01/20 09:00 02/06/20 11:35 Inderal PO 10 mg DAILY IVÁN Administration Rifaximin 550 mg 02/04/20 21:00 02/06/20 09:25 Xifaxan PO 550 mg BID IVÁN Administration Sodium Chloride 10 ml 02/01/20 03:38 02/03/20 20:34 Flush - Normal Saline IVF 10 ml PRN PRN Administration Saline Flush Thiamine HCl 100 mg 02/02/20 09:00 02/06/20 09:25 Thiamine PO 100 mg DAILY IVÁN Administration - Exam General Appearance: NAD, awake alert Eye: PERRL, anicteric sclera ENT: normocephalic atraumatic, no oropharyngeal lesions Neck: no JVD Heart: RRR, no murmur, no gallops, no rubs Respiratory: CTAB, no wheezes, no rales, no ronchi Gastrointestinal: soft, non-tender, non-distended, normal bowel sounds Extremities: no cyanosis, no clubbing, no edema Hosp A/P - Plan Consults: Hospice This is 34 year old male with decompensated cirrhosis, recently COVID + presenting with AMS #Acute hepatic encephalopathy - patient was getting standing lactulose. Lactulose dose was increased to 30 mg tid - aim for 3-5 bowel movements daily. Continue rifaximin -ammonia level was 132, improved to the 50's and increased to 64 #Decompensated cirrhosis #Transaminitis - pt reported abd distension on admission. Paracentesis unsuccessful in the ER. Started ceftriaxone for empiric SBP, treat for 5 days. Since patient lost IV, will switch to cefdinir, continue for two more days - patient has lost over 40 pounds. Diuretics held 01/25. Resume spironolactone at 25 mg daily since BP only 90's. Continue inderal for esophageal varices prophylaxis. IF BP stable, can increase spironolactone to 50 and resume lasix Hyponatremia - sodium dropped to 131. COnsider resuming lasix tomorrow if BP stable Acute respiratory alkalosis - ph 7.4 and bicarb 21. Chest X ray shows bilateral ground glass opacities. Not tachypneic anymore COVID + - first COVID + test 12/31 and repeat positive 01/22. Repeat positive. COVID isolation removed Fever - resolved - resolved. Blood cultures negative, UA negative, chest X ray shows bilateral pneumonia likely from old cOVID infection - getting IV ceftriaxone x 5 days for empiric SBP prophylaxis
--- NOTE | 2020-02-06 20:35 | PRG ---
DATE OF SERVICE: 02/06/2020 REASON FOR CONSULTATION: Hepatic encephalopathy, cirrhosis with ascites. SUBJECTIVE: Today, the patient states that he is doing well with no acute events or problems overnight. He also did not have any complaints or problems today with having approximately 3 to 4 semi-solid to liquid bowel movements over the last 12 to 24 hours. Otherwise, he denies any nausea, vomiting, fevers, chills, abdominal pain, hematemesis, melena, or hematochezia. OBJECTIVE: VITAL SIGNS: Temperature 97.8, pulse 94, blood pressure 97/62, respiratory rate 20, and saturating 100% on room air. GENERAL: The patient was lying in bed, in no acute distress. Alert and oriented x3. Tuvaluan-speaking only. CARDIOVASCULAR: Regular rate and rhythm. RESPIRATORY: Clear to auscultation bilaterally. ABDOMEN: Normoactive bowel sounds. Soft, nontender, and nondistended. EXTREMITIES: No cyanosis, clubbing, or edema. LABORATORY DATA: CBC with a white blood cell count of 6.4, hemoglobin 8.6, hematocrit 25.2, and platelets 54. INR 2.2. Chemistry with a sodium of 131, potassium 4.2, chloride 107, CO2 of 13, BUN 21, creatinine 0.83, and glucose 129. AST 79, ALT 40, alkaline phosphatase 166, and total bilirubin 5.2. MELD score calculated at 26. IMAGING DATA: No current GI imaging is available for review. ASSESSMENT: 1. Hepatic encephalopathy, resolving with administration of both lactulose and rifaximin. Would continue lactulose therapy to achieve a goal of 3-4 bowel movements daily and continue rifaximin 550 mg twice daily. 2. Alcoholic liver disease, improving. 3. Delirium, improving. 4. Ascites. The patient initially presented with significant lack of ascites that may have been due to over-diuresis on his prior hospitalization. Now that the patient's blood pressures are stabilizing, I would recommend restarting his spironolactone at 50 mg daily and furosemide 20 mg daily. 5. Esophageal varices. The patient has a recent history of bleeding esophageal varices, for which the patient should be placed on a nonselective beta-zac. I would continue the Inderal/propranolol and titrate the dose to achieve a goal heart rate of 55 to 65 beats per minute without decreasing the systolic blood pressure less than 90 mmHg. Given the stabilization of the patient's status, this patient could be discharged to home with followup in the GI clinic in the next 2 weeks. Please call with any questions. We will sign off at this time. Job ID: [id number]
[2020-02-06] MEDS: Cefdinir 300 MG CAP PO SCH (22:16)
[2020-02-07 06:39] LABS: ALT (SGPT) 41 U/L (8-55); AST (SGOT) 66 U/L (5-34); Albumin 2.4 g/dL (3.5-5.0); Alkaline Phosphatase 145 U/L (40-110); Anion Gap 10 mmol/L (10-20); BUN (Urea Nitrogen) 30 mg/dL (8.9-20.6); Bilirubin, Total 4.3 mg/dL (0.2-1.2); Calc. Creatinine Clearance 103 mL/min (70-130); Calcium 7.7 mg/dL (7.8-10.44); Carbon Dioxide 16 mmol/L (22-29); Chloride 109 mmol/L (98-107); Estimated GFR-MDRD 88; Globulin 2.9 g/dL (2.4-3.5); Glucose 175 mg/dL (70-105); Potassium 3.9 mmol/L (3.5-5.1); Protein, Total 5.3 g/dL (6.0-8.3); Sodium 131 mmol/L (136-145)
[2020-02-07] MEDS ORDERED: Spironolactone 25 MG TAB PO SCH ×2 (08:00)
[2020-02-07] MEDS: Rifaximin 550 MG TAB PO SCH ×2 (08:06→20:35)
[2020-02-07] MEDS: Cefdinir 300 MG CAP PO SCH ×2 (08:06→20:35)
[2020-02-07] MEDS: Folic Acid 1 MG TAB PO SCH (08:06)
[2020-02-07] MEDS: Thiamine 100 MG TAB PO SCH (08:07)
[2020-02-07] MEDS: Multivitamin W/ Minerals 1 TAB PO SCH (08:07)
[2020-02-07] MEDS: Magnesium Oxide 400 MG TAB PO SCH (08:07)
[2020-02-07] MEDS: Propranolol 10 MG TAB PO SCH (08:08)
[2020-02-07] MEDS: Furosemide 20 MG TAB PO SCH (08:09)
[2020-02-07] MEDS ORDERED: Albumin 25% 25 GM/100 ML BOT IVPB SCH (11:45)
--- NOTE | 2020-02-07 12:43 | PDOC.HOSPP ---
- Subjective Encounter Date: 02/07/20 Subjective: The patient has been feeling dizzy this morning. He had a presyncopal episode per nursing staff. His blood pressure has been in the 80s systolic. - Objective Vital Signs & Weight: Vital Signs (12 hours) Temp Pulse Resp BP BP BP Pulse Ox 02/07/20 11:00 98.5 F 101 H 16 88/55 L 100 02/07/20 08:00 98.2 F 99 20 81/49 L 81/49 L 100 02/07/20 06:00 108/61 02/07/20 04:00 98.4 F 94 20 108/61 100 Weight Admit Weight 152 lb 4.8 oz Weight 152 lb 4.8 oz I&O: 02/06/20 02/07/20 02/08/20 06:59 06:59 06:59 Intake Total 1500 240 Balance 1500 240 Result Diagrams: 02/06/20 05:18 02/07/20 05:59 Additional Labs: Accuchecks 02/07/20 02/07/20 02/06/20 10:57 06:43 20:14 POC Glucose 228 H 179 H 114 H 02/06/20 16:22 POC Glucose 251 H Hospitalist ROS - Medication Medications: Active Medications Generic Name Dose Route Start Last Admin Trade Name Freq PRN Reason Stop Dose Admin Cefdinir 300 mg 02/06/20 21:00 02/07/20 08:06 Omnicef PO 300 mg BID IVÁN Administration Folic Acid 1 mg 02/01/20 09:00 02/07/20 08:06 Folvite PO 1 mg DAILY IVÁN Administration Furosemide 20 mg 02/05/20 09:00 02/07/20 08:09 Lasix PO Not Given DAILY [facility] Insulin Human Lispro 0 units 02/01/20 01:34 02/06/20 17:20 Humalog SC 4 unit .MILD SLIDING SCALE PRN Administration Mild Correctional Scale Iron/Minerals/Multivitamins 1 tab 02/01/20 09:00 02/07/20 08:07 Theragran M PO 1 tab DAILY IVÁN Administration Lactulose 30 gm 02/03/20 21:00 02/07/20 08:07 Lactulose PO Not Given TID IVÁN Magnesium Oxide 400 mg 02/02/20 09:00 02/07/20 08:07 Magnesium Oxide PO 400 mg DAILY IVÁN Administration Pantoprazole Sodium 40 mg 02/01/20 09:00 02/07/20 08:07 Protonix PO 40 mg DAILY IVÁN Administration Propranolol HCl 10 mg 02/01/20 09:00 02/07/20 08:08 Inderal PO Not Given DAILY IVÁN Rifaximin 550 mg 02/04/20 21:00 02/07/20 08:06 Xifaxan PO 550 mg BID IVÁN Administration Sodium Chloride 10 ml 02/01/20 03:38 02/03/20 20:34 Flush - Normal Saline IVF 10 ml PRN PRN Administration Saline Flush Spironolactone 50 mg 02/07/20 08:00 02/07/20 08:09 Aldactone PO Not Given QAM-WM IVÁN Thiamine HCl 100 mg 02/02/20 09:00 02/07/20 08:07 Thiamine PO 100 mg DAILY IVÁN Administration - Exam General Appearance: awake alert ENT: normocephalic atraumatic Neck: supple Respiratory: normal chest expansion, no tachypnea Neurological: cranial nerve grossly intact, no focal deficits Hosp A/P - Plan 02/05: This is 34 year old male with decompensated cirrhosis, recently COVID + presenting with AMS #Acute hepatic encephalopathy - patient was getting standing lactulose. Lactulose dose was increased to 30 mg tid - aim for 3-5 bowel movements daily. Continue rifaximin -ammonia level was 132, improved to the 50's and increased to 64 #Decompensated cirrhosis #Transaminitis - pt reported abd distension on admission. Paracentesis unsuccessful in the ER. Started ceftriaxone for empiric SBP, treat for 5 days. Since patient lost IV, will switch to cefdinir, continue for two more days - patient has lost over 40 pounds. Diuretics held 01/25. Resume spironolactone at 25 mg daily since BP only 90's. Continue inderal for esophageal varices prophylaxis. IF BP stable, can increase spironolactone to 50 and resume lasix Hyponatremia - sodium dropped to 131. COnsider resuming lasix tomorrow if BP stable Acute respiratory alkalosis - ph 7.4 and bicarb 21. Chest X ray shows bilateral ground glass opacities. Not tachypneic anymore COVID + - first COVID + test 12/31 and repeat positive 01/22. Repeat positive. COVID isolation removed Fever - resolved - resolved. Blood cultures negative, UA negative, chest X ray shows bilateral pneumonia likely from old cOVID infection - getting IV ceftriaxone x 5 days for empiric SBP prophylaxis 02/06: The patient has been having diarrhea. Lactulose was placed on hold. He appears to be clinically dry. He systolic blood pressure is in the 80s. Presyncopal episode-due to orthostatic hypotension. I will administer 50 g of albumin and start normal saline at 70 cc/h for 1 L. Diuretics and antihypertensive medications on hold.
[2020-02-07] MEDS ORDERED: Sodium Chloride 0.9% 1,000 ML IV SCH (12:45)
[2020-02-07] MEDS ORDERED: Sodium Chloride 0.9% 500 ML IV SCH (12:45)
[2020-02-07] MEDS: HumaLOG 300 UNITS/3 ML VIAL SC PRN (17:32)
--- NOTE | 2020-02-07 20:08 | PRG ---
DATE OF SERVICE: 02/07/2020 REASON FOR CONSULTATION: Hepatic encephalopathy, cirrhosis with ascites, melena. SUBJECTIVE: Today, the patient stated that he had been having increased dizziness and difficulty with ambulation. Upon checking his blood pressures this morning, he was noted to be significantly orthostatic with systolic blood pressures in the 80s. However, per nursing staff, he has been having multiple bowel movements throughout the day that were black in coloration, albeit small in volume. Currently, he denies any nausea, vomiting, fevers, chills, or abdominal pain; although, the patient's mental status has changed somewhat and is mildly confused upon evaluation. OBJECTIVE: VITAL SIGNS: Temperature 98, pulse 103, blood pressure 78/41, respiratory rate 16, and saturating 100% on room air. GENERAL: The patient was lying in bed, in no acute distress. Alert and oriented x2. Luxembourgish-speaking only. CARDIOVASCULAR: Regular rate and rhythm. RESPIRATORY: Clear to auscultation bilaterally. ABDOMEN: Normoactive bowel sounds. Soft, nontender, and nondistended. EXTREMITIES: No cyanosis, clubbing, or edema. LABORATORY DATA: CBC with a white blood cell count of 6.4, hemoglobin 8.6, hematocrit 25.3, platelets 54. Chemistry with a sodium of 131, potassium 3.9, chloride 109, CO2 of 16, BUN 30, creatinine 0.97, glucose 175. AST 66, ALT 41, alkaline phosphatase 145, and total bilirubin 4.3. IMAGING DATA: No current GI imaging is available for review. ASSESSMENT: 1. Hepatic encephalopathy had resolved during the course of this hospitalization with both lactulose and rifaximin, however now having mild increasing confusion in light of melenic type stools. 2. Alcoholic liver disease, improving with downtrending total bilirubin. 3. Ascites. primarily due to over-diuresis as an outpatient with stabilization of his blood pressures. He was restarted on spironolactone 50 mg daily. However, the patient is now having orthostatic type symptoms, which could be due to his diuretics or his nonselective beta-blockade. For now, I would consider holding the spironolactone. 4. Esophageal varices. The patient has a recent episode of bleeding secondary to esophageal varices, for which the patient was placed on a nonselective beta zac during this admission. However, with restarting this medication, he has had orthostatic type picture with significantly decreased blood pressure today, which may mean that the patient is unable to tolerate the medication adequately given his current state. I would hold this medication for now given his hypotension. 5. Melena/esophageal varices. The patient has been having multiple bowel movements over the course of the day today consistent of smaller black semi-solid/sticky stools. Given his recent episode of bleeding esophageal varices, this is concerning for recurrence, especially with a downtrending H and H at this time. Please make the patient n.p.o. at midnight in anticipation of upper endoscopy tomorrow morning. In the meantime, I would recommend IV fluid as part of resuscitative efforts and maintaining an H and H of 01/05. We will continue to follow. Please call with any questions. Job ID: [id number]
[2020-02-08] MEDS: Sodium Chloride 0.9% 1,000 ML IV SCH ×2 (05:16→12:52)
[2020-02-08 06:18] LABS: #Basophils 0.1 thou/uL (0.0-0.2); #Eosinphils 0.2 thou/uL (0.0-0.7); #Lymphocytes 2.7 thou/uL (1.20-3.40); #Monocytes 0.8 thou/uL (0.11-0.59); #Neutrophils 2.1 thou/uL (1.40-6.50); %Basophils 1.4 % (0.0-1.0); %Eosinophils 3.9 % (0.0-10.0); %Lymphocytes 46.2 % (21.0-51.0); %Monocytes 13.5 % (0.0-10.0); %Neutrophils 34.9 % (42.0-75.0); Hemoglobin 5.6 g/dL (14.0-18.0); Mean Corpuscular HGB CONC 33.8 g/dL (32.0-36.0); Mean Corpuscular Hemoglobin 35.2 pg (27.0-31.0); Mean Platelet Volume 8.8 fL (7.4-10.4); Platelet Count 52 thou/uL (130-400); Red Blood Cell (RBC) Count 1.59 mill/uL (4.70-6.10); White Blood Cell (WBC) Count 5.9 thou/uL (4.8-10.8)
[2020-02-08 06:28] LABS: Anion Gap 10 mmol/L (10-20); BUN (Urea Nitrogen) 28 mg/dL (8.9-20.6); Calc. Creatinine Clearance 125 mL/min (70-130); Calcium 7.9 mg/dL (7.8-10.44); Carbon Dioxide 18 mmol/L (22-29); Chloride 108 mmol/L (98-107); Estimated GFR-MDRD Greater than 90; Glucose 112 mg/dL (70-105); Potassium 3.8 mmol/L (3.5-5.1); Sodium 132 mmol/L (136-145)
[2020-02-08] MEDS: Furosemide 20 MG TAB PO SCH (07:20)
[2020-02-08] MEDS: Folic Acid 1 MG TAB PO SCH (07:20)
[2020-02-08] MEDS: Thiamine 100 MG TAB PO SCH (07:21)
[2020-02-08] MEDS: Multivitamin W/ Minerals 1 TAB PO SCH (07:21)
[2020-02-08] MEDS: Magnesium Oxide 400 MG TAB PO SCH (07:21)
[2020-02-08] MEDS: Rifaximin 550 MG TAB PO SCH ×2 (07:21→21:35)
[2020-02-08] MEDS ORDERED: Metoclopramide HCl 10 MG/2 ML VIAL IVP SCH (08:15)
[2020-02-08] MEDS ORDERED: Fentanyl 100 MCG/2 ML VIAL ONE (10:25)
[2020-02-08] MEDS ORDERED: PHENYLEPHRINE-NS 100 MCG/ML 10 ML SYRINGE ONE (10:37)
[2020-02-08] MEDS ORDERED: EPHEDRINE 25 MG/5 ML SYRINGE ONE (10:37)
[2020-02-08] MEDS ORDERED: Ondansetron PF 4 MG/2 ML Vial ONE (10:37)
[2020-02-08] MEDS ORDERED: Succinylcholine Chloride 20 MG/ML 10 ml SYRINGE FS ONE (10:37)
[2020-02-08] MEDS ORDERED: PROPOFOL 200 MG/20 ML VIAL ONE (10:37)
[2020-02-08] MEDS ORDERED: Lidocaine 1% PF 5 ML VIAL ONE (10:37)
[2020-02-08] MEDS ORDERED: Ethanolamine Oleate 5% 2 ml Ampule ONE (10:39)
[2020-02-08] MEDS ORDERED: Promethazine HCl 25 MG/ML VIAL SLOW IVP PRN (11:15)
[2020-02-08] MEDS ORDERED: Ondansetron HCl/PF 4 MG/2 ML Vial IVP PRN (11:15)
[2020-02-08] MEDS ORDERED: Promethazine HCl 25 MG/ML VIAL IM PRN (11:15)
[2020-02-08] MEDS: Cefdinir 300 MG CAP PO SCH ×2 (12:34→21:35)
--- NOTE | 2020-02-08 12:48 | PDOC.HOSPP ---
- Subjective Encounter Date: 02/08/20 Subjective: The patient is complaining of dizziness. He had multiple black stools per nursing staff. - Objective Vital Signs & Weight: Vital Signs (12 hours) Temp Pulse Pulse Resp BP BP BP 02/08/20 12:02 97.5 F L 81 17 106/68 02/08/20 12:00 106/68 02/08/20 10:00 96 104/62 02/08/20 08:48 98.9 F 96 18 83/41 L 02/08/20 08:00 84/46 L 02/08/20 07:16 98.6 F 96 16 82/41 L 02/08/20 04:00 98.5 F 97 18 91/50 L Pulse Ox 02/08/20 12:02 99 02/08/20 12:00 02/08/20 10:00 02/08/20 08:48 99 02/08/20 08:00 100 02/08/20 07:16 99 02/08/20 04:00 99 Weight Admit Weight 152 lb 4.8 oz Weight 152 lb 4.8 oz I&O: 02/07/20 02/08/20 02/09/20 06:59 06:59 06:59 Intake Total 1500 3350 0 Output Total 151 Balance 1500 3199 0 Result Diagrams: 02/08/20 05:47 02/08/20 05:47 Additional Labs: Accuchecks 02/08/20 02/08/20 02/07/20 12:12 04:54 20:09 POC Glucose 148 H 120 H 164 H 02/07/20 16:21 POC Glucose 206 H Hospitalist ROS - Medication Medications: Active Medications Generic Name Dose Route Start Last Admin Trade Name Freq PRN Reason Stop Dose Admin Cefdinir 300 mg 02/06/20 21:00 02/08/20 12:34 Omnicef PO Not Given BID [facility] Folic Acid 1 mg 02/01/20 09:00 02/08/20 07:20 Folvite PO Not Given DAILY IVÁN Furosemide 20 mg 02/05/20 09:00 02/08/20 07:20 Lasix PO Not Given DAILY IVÁN Sodium Chloride 1,000 mls @ 75 mls/hr 02/08/20 04:45 02/08/20 05:16 Normal Saline 0.9% IV 1,000 mls .[id number] IVÁN Administration Insulin Human Lispro 0 units 02/01/20 01:34 02/07/20 17:32 Humalog SC 3 unit .MILD SLIDING SCALE PRN Administration Mild Correctional Scale Iron/Minerals/Multivitamins 1 tab 02/01/20 09:00 02/08/20 07:21 Theragran M PO Not Given DAILY IVÁN Lactulose 30 gm 02/03/20 21:00 02/08/20 07:20 Lactulose PO Not Given TID IVÁN Magnesium Oxide 400 mg 02/02/20 09:00 02/08/20 07:21 Magnesium Oxide PO Not Given DAILY IVÁN Rifaximin 550 mg 02/04/20 21:00 02/08/20 07:21 Xifaxan PO Not Given BID IVÁN Sodium Chloride 10 ml 02/01/20 03:38 02/03/20 20:34 Flush - Normal Saline IVF 10 ml PRN PRN Administration Saline Flush Thiamine HCl 100 mg 02/02/20 09:00 02/08/20 07:21 Thiamine PO Not Given DAILY IVÁN - Exam General Appearance: awake alert ENT: normocephalic atraumatic Neck: supple, no JVD Respiratory: normal chest expansion, no tachypnea Extremities: no cyanosis, no clubbing Neurological: cranial nerve grossly intact, no focal deficits Hosp A/P - Plan 02/05: This is 34 year old male with decompensated cirrhosis, recently COVID + presenting with AMS #Acute hepatic encephalopathy - patient was getting standing lactulose. Lactulose dose was increased to 30 mg tid - aim for 3-5 bowel movements daily. Continue rifaximin -ammonia level was 132, improved to the 50's and increased to 64 #Decompensated cirrhosis #Transaminitis - pt reported abd distension on admission. Paracentesis unsuccessful in the ER. Started ceftriaxone for empiric SBP, treat for 5 days. Since patient lost IV, will switch to cefdinir, continue for two more days - patient has lost over 40 pounds. Diuretics held 01/25. Resume spironolactone at 25 mg daily since BP only 90's. Continue inderal for esophageal varices prophylaxis. IF BP stable, can increase spironolactone to 50 and resume lasix Hyponatremia - sodium dropped to 131. COnsider resuming lasix tomorrow if BP stable Acute respiratory alkalosis - ph 7.4 and bicarb 21. Chest X ray shows bilateral ground glass opacities. Not tachypneic anymore COVID + - first COVID + test 12/31 and repeat positive 01/22. Repeat positive. COVID isolation removed Fever - resolved - resolved. Blood cultures negative, UA negative, chest X ray shows bilateral pneumonia likely from old cOVID infection - getting IV ceftriaxone x 5 days for empiric SBP prophylaxis 02/06: The patient has been having diarrhea. Lactulose was placed on hold. He appears to be clinically dry. He systolic blood pressure is in the 80s. Presyncopal episode-due to orthostatic hypotension. I will administer 50 g of albumin and start normal saline at 70 cc/h for 1 L. Diuretics and antihypertensive medications on hold. 02/07: The patient has been hypotensive throughout yesterday and multiple black stools were reported. This morning his hemoglobin has dropped to below 6. Possible variceal bleeding is in the differential. Antihypertensive medications have been held. The patient is getting 2 units of packed RBCs. GI planning an upper endoscopy.
[2020-02-08] MEDS: Octreotide Acetate 1,250 MCG in Sodium Chloride 0.9% 250 ML 250 ML IVPB SCH (12:50)
[2020-02-08] MEDS: HumaLOG 300 UNITS/3 ML VIAL SC PRN (16:46)
[2020-02-08] MEDS: Pantoprazole 40 MG VIAL IVP SCH (21:36)
[2020-02-09 05:44] LABS: #Basophils 0.1 thou/uL (0.0-0.2); #Eosinphils 0.3 thou/uL (0.0-0.7); #Monocytes 0.7 thou/uL (0.11-0.59); #Neutrophils 1.9 thou/uL (1.40-6.50); %Basophils 1.3 % (0.0-1.0); %Eosinophils 6.8 % (0.0-10.0); %Lymphocytes 40.9 % (21.0-51.0); %Monocytes 13.2 % (0.0-10.0); %Neutrophils 37.8 % (42.0-75.0); Hemoglobin 8.4 g/dL (14.0-18.0); Mean Corpuscular HGB CONC 33.3 g/dL (32.0-36.0); Mean Corpuscular Hemoglobin 33.9 pg (27.0-31.0); Mean Platelet Volume 8.9 fL (7.4-10.4); Platelet Count 44 thou/uL (130-400); RBC Distribution Width 16.2 % (11.5-14.5); Red Blood Cell (RBC) Count 2.49 mill/uL (4.70-6.10)
[2020-02-09 05:54] LABS: Anion Gap 11 mmol/L (10-20); BUN (Urea Nitrogen) 17 mg/dL (8.9-20.6); Calc. Creatinine Clearance 154 mL/min (70-130); Calcium 7.9 mg/dL (7.8-10.44); Carbon Dioxide 17 mmol/L (22-29); Chloride 108 mmol/L (98-107); Estimated GFR-MDRD Greater than 90; Glucose 87 mg/dL (70-105); Potassium 4.1 mmol/L (3.5-5.1); Sodium 132 mmol/L (136-145)
--- NOTE | 2020-02-09 08:41 | OP ---
DATE OF PROCEDURE: 02/08/2020 PROCEDURE PERFORMED: EGD with band ligation x4. INDICATION FOR PROCEDURE: Melena, history of bleeding esophageal varices within the last few weeks, anemia. DESCRIPTION OF PROCEDURE: After the risks and benefits of the procedure were explained to the patient and the patient's surrogate (the patient's ) including risks of bleeding, infection, perforation, reactions to anesthesia, aspiration, and/or pain, informed consent was obtained. The patient was then taken to the endoscopy suite, where general anesthesia was administered followed by endotracheal tube intubation. Once the patient was intubated and sedated, he was maneuvered into the left lateral decubitus position, followed by introduction of the standard gastroscope, which was then advanced to the esophagus, stomach, and the proximal small intestines with the findings listed below. The patient tolerated the procedure well with no immediate perioperative complications. Upon conclusion of the procedure, all equipment was removed from the patient. He was transferred to PACU in satisfactory condition. FINDINGS: Esophagus: Normal-appearing mucosa was seen in the proximal and mid esophagus; however, large esophageal varices were seen in the distal esophagus, one of which appeared to have a protruding lesion coming out from the varix itself, but did not display any blood clot adherent to this lesion. Based on its appearance, it looked as though this was a site of prior band ligation where the rubber band had fallen off. In any case, there was high-risk stigmata of bleeding associated with this particular lesion as well as red ruy sign located on additional varices nearby. Subsequently, band ligation was then employed with approximately 4 bands placed within the distal esophagus including covering this particular lesion as well with good hemostasis achieved. Otherwise, there was no evidence of erosions or active bleeding seen in the esophagus. Approximately 7 to 8 cm proximal to the gastroesophageal junction, a 1 cm flat based ulceration was also seen consistent with prior band ligation site. Stomach: A moderate amount of retained blood material and food were seen within the stomach that initially interfered with visualization of the gastric mucosa. However, this blood clot/food material was amenable to either irrigation and suctioning or was amenable to being moved throughout the stomach to obtain adequate visualization of the underlying mucosa. Of the mucosa seen, there was no evidence of erosions, ulcerations, mass lesions, or active/bleeding seen in the gastric cardia, fundus, body, greater curvature, antrum, and incisura. There were no gastric varices on retroflexion. Duodenum: Normal-appearing mucosa was seen in both the duodenal bulb and second portion of the duodenum. There were no evidence of erosions, ulcerations, mass lesions, or active/recent bleeding. IMPRESSION: 1. Large (grade 2) esophageal varices seen in the distal esophagus, one of which had a protruding lesion consistent with a slipped band, now status post band ligation x4 with good hemostasis achieved. 2. Moderate amount of retained blood and food material within the stomach, but amenable to irrigation and suctioning with normal-appearing mucosa afterwards. RECOMMENDATIONS: 1. Would continue to trend the patient's hemoglobin and hematocrit and transfuse as necessary to maintain a hemoglobin and hematocrit of 7/21. 2. Continue to monitor clinically for signs of active GI bleeding. 3. Would increase the patient's pantoprazole to 40 mg IV b.i.d. 4. Would restart the patient on octreotide drip in light of actively bleeding esophageal varices and will need to be on this for approximately 48 to 72 hours. 5. Would avoid any anticoagulation in this patient. 6. Would hold the patient's propranolol and spironolactone for the time being given the hypotension associated with his bleeding today. We will continue to follow. Please call with any questions. Job ID: [id number]
[2020-02-09] MEDS: Magnesium Oxide 400 MG TAB PO SCH (08:45)
[2020-02-09] MEDS: Cefdinir 300 MG CAP PO SCH ×2 (08:45→20:43)
[2020-02-09] MEDS: Folic Acid 1 MG TAB PO SCH (08:45)
[2020-02-09] MEDS: Furosemide 20 MG TAB PO SCH (08:45)
[2020-02-09] MEDS: Rifaximin 550 MG TAB PO SCH ×2 (08:45→20:43)
[2020-02-09] MEDS: Multivitamin W/ Minerals 1 TAB PO SCH (08:45)
[2020-02-09] MEDS: Thiamine 100 MG TAB PO SCH (08:45)
[2020-02-09] MEDS: Sodium Chloride 0.9% 1,000 ML IV SCH ×2 (08:46→20:46)
[2020-02-09] MEDS: Pantoprazole 40 MG VIAL IVP SCH ×2 (08:46→20:43)
--- NOTE | 2020-02-09 13:23 | PDOC.HOSPP ---
- Subjective Encounter Date: 02/09/20 Subjective: No further episodes of active bleeding. - Objective Vital Signs & Weight: Vital Signs (12 hours) Temp Pulse Resp BP BP Pulse Ox 02/09/20 12:31 98.1 F 85 18 102/67 98 02/09/20 08:20 98.1 F 83 16 102/66 100 02/09/20 08:00 102/66 Weight Admit Weight 152 lb 4.8 oz Weight 152 lb 4.8 oz I&O: 02/08/20 02/09/20 02/10/20 06:59 06:59 06:59 Intake Total 3350 2150 Output Total 151 600 Balance 3199 1550 Result Diagrams: 02/09/20 05:14 02/09/20 05:14 Additional Labs: Accuchecks 02/09/20 02/09/20 02/08/20 11:42 06:43 20:38 POC Glucose 227 H 92 189 H 02/08/20 15:49 POC Glucose 224 H Hospitalist ROS - Medication Medications: Active Medications Generic Name Dose Route Start Last Admin Trade Name Gauri PRN Reason Stop Dose Admin Cefdinir 300 mg 02/06/20 21:00 02/09/20 08:45 Omnicef PO 300 mg BID IVÁN Administration Folic Acid 1 mg 02/01/20 09:00 02/09/20 08:45 Folvite PO 1 mg DAILY IVÁN Administration Furosemide 20 mg 02/05/20 09:00 02/09/20 08:45 Lasix PO 20 mg DAILY IVÁN Administration Sodium Chloride 1,000 mls @ 75 mls/hr 02/08/20 04:45 02/09/20 08:46 Normal Saline 0.9% IV 1,000 mls .[id number] IVÁN Administration Octreotide Acetate 1,250 mcg/ 251.25 mls @ 10.05 mls/hr 02/08/20 11:15 12:50 Sodium Chloride IVPB 251.25 mls INF IVÁN Administration 50 MCG/HR Insulin Human Lispro 0 units 02/01/20 01:34 02/08/20 16:46 Humalog SC 3 unit .MILD SLIDING SCALE PRN Administration Mild Correctional Scale Iron/Minerals/Multivitamins 1 tab 02/01/20 09:00 02/09/20 08:45 Theragran M PO 1 tab DAILY IVÁN Administration Lactulose 30 gm 02/03/20 21:00 02/09/20 08:46 Lactulose PO 30 gm TID IVÁN Administration Magnesium Oxide 400 mg 02/02/20 09:00 02/09/20 08:45 Magnesium Oxide PO 400 mg DAILY IVÁN Administration Pantoprazole Sodium 40 mg 02/08/20 21:00 02/09/20 08:46 Protonix IVP 40 mg Q12HR IVÁN Administration Rifaximin 550 mg 02/04/20 21:00 02/09/20 08:45 Xifaxan PO 550 mg BID IVÁN Administration Sodium Chloride 10 ml 02/01/20 03:38 02/03/20 20:34 Flush - Normal Saline IVF 10 ml PRN PRN Administration Saline Flush Thiamine HCl 100 mg 02/02/20 09:00 02/09/20 08:45 Thiamine PO 100 mg DAILY IVÁN Administration - Exam General Appearance: awake alert ENT: normocephalic atraumatic Neck: supple Respiratory: normal chest expansion, no tachypnea Extremities: no cyanosis, no clubbing Neurological: cranial nerve grossly intact, no new deficit Hosp A/P - Plan 02/05: This is 34 year old male with decompensated cirrhosis, recently COVID + presenting with AMS #Acute hepatic encephalopathy - patient was getting standing lactulose. Lactulose dose was increased to 30 mg tid - aim for 3-5 bowel movements daily. Continue rifaximin -ammonia level was 132, improved to the 50's and increased to 64 #Decompensated cirrhosis #Transaminitis - pt reported abd distension on admission. Paracentesis unsuccessful in the ER. Started ceftriaxone for empiric SBP, treat for 5 days. Since patient lost IV, will switch to cefdinir, continue for two more days - patient has lost over 40 pounds. Diuretics held 01/25. Resume spironolactone at 25 mg daily since BP only 90's. Continue inderal for esophageal varices prophylaxis. IF BP stable, can increase spironolactone to 50 and resume lasix Hyponatremia - sodium dropped to 131. COnsider resuming lasix tomorrow if BP stable Acute respiratory alkalosis - ph 7.4 and bicarb 21. Chest X ray shows bilateral ground glass opacities. Not tachypneic anymore COVID + - first COVID + test 12/31 and repeat positive 01/22. Repeat positive. COVID isolation removed Fever - resolved - resolved. Blood cultures negative, UA negative, chest X ray shows bilateral pneumonia likely from old cOVID infection - getting IV ceftriaxone x 5 days for empiric SBP prophylaxis 02/06: The patient has been having diarrhea. Lactulose was placed on hold. He appears to be clinically dry. He systolic blood pressure is in the 80s. Presyncopal episode-due to orthostatic hypotension. I will administer 50 g of albumin and start normal saline at 70 cc/h for 1 L. Diuretics and antihypertensive medications on hold. 02/07: The patient has been hypotensive throughout yesterday and multiple black stools were reported. This morning his hemoglobin has dropped to below 6. Possible variceal bleeding is in the differential. Antihypertensive medications have been held. The patient is getting 2 units of packed RBCs. GI planning an upper endoscopy. 02/08: Hypotension due to active esophageal variceal bleed status post banding x4. Vital signs are currently stable after transfusion. Continue to monitor H&H. Continue octreotide and Protonix. Appreciate GI.
--- NOTE | 2020-02-09 13:39 | PRG ---
DATE OF SERVICE: 02/09/2020 REASON FOR CONSULTATION: Hepatic encephalopathy, cirrhosis with ascites, recent history of bleeding esophageal varices. SUBJECTIVE: Today, the patient states that he is doing much better when compared to previous, which was echoed by his who was at bedside. Today, he was able to ambulate throughout the floor using a walker and with physical therapy held. He has also had 2 to 3 bowel movements since the procedure yesterday that were darker and sometimes black in coloration, but denies any hematemesis or hematochezia. Otherwise, he states that his mind is doing well and was alert and oriented x4 during our conversation today. Currently, he denies any nausea, vomiting, fevers, chills, or abdominal pain. OBJECTIVE: VITAL SIGNS: Temperature 98.1, pulse 85, blood pressure 102/67, respiratory rate 18, saturating 98% on room air. GENERAL: The patient was lying in bed, in no acute distress. Alert and oriented x4. Dominican-speaking only. CARDIOVASCULAR: Regular rate and rhythm. RESPIRATORY: Clear to auscultation bilaterally. ABDOMEN: Normoactive bowel sounds. Soft, nontender, nondistended. EXTREMITIES: No cyanosis, clubbing, or edema. LABORATORY DATA: CBC with a white blood cell count of 5, hemoglobin 8.4, hematocrit 25.3, platelets 44. Chemistry with a sodium of 132, potassium 4.1, chloride 108, CO2 of 17, BUN 17, creatinine 0.65, glucose 87. IMAGING DATA: The patient underwent upper endoscopy on February 08, 2020, which showed the presence of large esophageal varices in the distal esophagus including one varix that appeared to have a protruding lesion coming out of the varix itself. Based on its appearance, it looked as though this was a site of prior band ligation, where the band had inadvertently falled off shortly after placement. In any case along these varices, there were stigmata of high-risk bleeding including red ruy sign and this lesion sitting on top of the varix. Subsequently, he underwent band ligation x4 with good hemostasis achieved. ASSESSMENT: 1. Hepatic encephalopathy, resolved during this hospitalization with both lactulose and rifaximin and correction of esophageal varices. 2. Alcoholic liver disease. Improving with downtrending bilirubin. 3. Ascites, resolved with over-diuresis as an outpatient with no reaccumulation during this hospitalization. I would continue to hold his spironolactone until ready for discharge and then restart the patient on spironolactone 50 mg daily as monotherapy. 4. Esophageal varices. The patient initially presented to the hospital with a recent episode of an esophageal varix bleed, for which the patient had undergone band ligation as well as placement on nonselective beta blockers. However, on February 07, 2020, he exhibited alterations of his mental status in addition to melenic type stools concerning for continued GI bleeding. He subsequently underwent EGD on February 08, 2020, which showed the presence of large distal esophageal varices, one of which appeared to have a polypoid appearance on top of the varix indicative of a slipped band. He subsequently underwent band ligation x4 with no further episodes of melena or decrease in H and H since. For now, I would continue the patient on octreotide for the next 24 to 48 hours in addition to continuation of pantoprazole 40 mg IV b.i.d. and ceftriaxone for prophylaxis in a cirrhotic patient with bleeding. RECOMMENDATIONS: 1. Would continue to trend his H and H and transfuse as necessary to maintain an H and H of 7/21. 2. Continue to monitor clinically for signs of active GI bleeding. 3. Would titrate lactulose to achieve goal of 3 to 4 bowel movements daily. 4. We would hold on spironolactone until discharge and then restart the spironolactone 50 mg daily as monotherapy (would not add furosemide back in). 5. Would continue to monitor the patient's blood pressure with consideration of placing the patient on propranolol prior to discharge if able to tolerate a systolic blood pressure greater than 100 mmHg with goal heart rate of 55 to 65 beats per minute. We will continue to follow. Please call with any questions. Job ID: [id number]
[2020-02-09] MEDS: Octreotide Acetate 1,250 MCG in Sodium Chloride 0.9% 250 ML 250 ML IVPB SCH (16:27)
[2020-02-09] MEDS: HumaLOG 300 UNITS/3 ML VIAL SC PRN (16:54)
[2020-02-10 06:00] LABS: #Basophils 0.1 thou/uL (0.0-0.2); #Eosinphils 0.4 thou/uL (0.0-0.7); #Monocytes 0.6 thou/uL (0.11-0.59); #Neutrophils 1.7 thou/uL (1.40-6.50); %Basophils 2.1 % (0.0-1.0); %Eosinophils 8.6 % (0.0-10.0); %Lymphocytes 42.1 % (21.0-51.0); %Monocytes 11.9 % (0.0-10.0); %Neutrophils 35.4 % (42.0-75.0); Mean Corpuscular HGB CONC 33.1 g/dL (32.0-36.0); Mean Corpuscular Hemoglobin 33.6 pg (27.0-31.0); Mean Platelet Volume 8.8 fL (7.4-10.4); Platelet Count 50 thou/uL (130-400); RBC Distribution Width 16.3 % (11.5-14.5); Red Blood Cell (RBC) Count 2.38 mill/uL (4.70-6.10); White Blood Cell (WBC) Count 4.8 thou/uL (4.8-10.8)
[2020-02-10 06:20] LABS: Anion Gap 11 mmol/L (10-20); BUN (Urea Nitrogen) 10 mg/dL (8.9-20.6); Calc. Creatinine Clearance 145 mL/min (70-130); Calcium 7.7 mg/dL (7.8-10.44); Carbon Dioxide 19 mmol/L (22-29); Chloride 108 mmol/L (98-107); Estimated GFR-MDRD Greater than 90; Glucose 131 mg/dL (70-105); Potassium 3.7 mmol/L (3.5-5.1); Sodium 134 mmol/L (136-145)
[2020-02-10] MEDS: Rifaximin 550 MG TAB PO SCH ×2 (07:46→20:56)
[2020-02-10] MEDS: Folic Acid 1 MG TAB PO SCH (07:46)
[2020-02-10] MEDS: Cefdinir 300 MG CAP PO SCH ×2 (07:46→20:56)
[2020-02-10] MEDS: Furosemide 20 MG TAB PO SCH (07:46)
[2020-02-10] MEDS: Thiamine 100 MG TAB PO SCH (07:46)
[2020-02-10] MEDS: Magnesium Oxide 400 MG TAB PO SCH (07:46)
[2020-02-10] MEDS: Multivitamin W/ Minerals 1 TAB PO SCH (07:46)
[2020-02-10] MEDS: Pantoprazole 40 MG VIAL IVP SCH (07:47)
--- NOTE | 2020-02-10 10:24 | PDOC.HOSPP ---
- Subjective Encounter Date: 02/10/20 Subjective: No further episodes of bleeding. - Objective Vital Signs & Weight: Vital Signs (12 hours) Temp Pulse Resp BP BP BP Pulse Ox 02/10/20 08:35 98.1 F 89 18 104/65 100 02/10/20 08:00 104/65 100 02/10/20 04:00 98.7 F 86 20 106/69 100 02/10/20 00:00 98.4 F 93 20 110/73 100 Weight Admit Weight 152 lb 4.8 oz Weight 152 lb 4.8 oz I&O: 02/09/20 02/10/20 02/11/20 06:59 06:59 06:59 Intake Total 2150 Output Total 600 Balance 1550 Result Diagrams: 02/10/20 05:13 02/10/20 05:13 Additional Labs: Accuchecks 02/10/20 02/09/20 02/09/20 05:04 19:28 16:42 POC Glucose 137 H 177 H 283 H 02/09/20 11:42 POC Glucose 227 H Hospitalist ROS - Medication Medications: Active Medications Generic Name Dose Route Start Last Admin Trade Name Freq PRN Reason Stop Dose Admin Cefdinir 300 mg 02/06/20 21:00 02/10/20 07:46 Omnicef PO 300 mg BID IVÁN Administration Folic Acid 1 mg 02/01/20 09:00 02/10/20 07:46 Folvite PO 1 mg DAILY IVÁN Administration Furosemide 20 mg 02/05/20 09:00 02/10/20 07:46 Lasix PO 20 mg DAILY IVÁN Administration Octreotide Acetate 1,250 mcg/ 251.25 mls @ 10.05 mls/hr 02/08/20 11:15 16:27 Sodium Chloride IVPB 251.25 mls INF IVÁN Administration 50 MCG/HR Insulin Human Lispro 0 units 02/01/20 01:34 02/09/20 16:54 Humalog SC 4 unit .MILD SLIDING SCALE PRN Administration Mild Correctional Scale Iron/Minerals/Multivitamins 1 tab 02/01/20 09:00 02/10/20 07:46 Theragran M PO 1 tab DAILY IVÁN Administration Magnesium Oxide 400 mg 02/02/20 09:00 02/10/20 07:46 Magnesium Oxide PO 400 mg DAILY IVÁN Administration Pantoprazole Sodium 40 mg 02/08/20 21:00 02/10/20 07:47 Protonix IVP 40 mg Q12HR IVÁN Administration Rifaximin 550 mg 02/04/20 21:00 02/10/20 07:46 Xifaxan PO 550 mg BID IVÁN Administration Sodium Chloride 10 ml 02/01/20 03:38 02/03/20 20:34 Flush - Normal Saline IVF 10 ml PRN PRN Administration Saline Flush Thiamine HCl 100 mg 02/02/20 09:00 02/10/20 07:46 Thiamine PO 100 mg DAILY IVÁN Administration - Exam General Appearance: awake alert ENT: normocephalic atraumatic Neck: supple, no JVD Respiratory: normal chest expansion, no tachypnea Extremities: no cyanosis, no clubbing Neurological: cranial nerve grossly intact, no focal deficits Hosp A/P - Plan 02/05: This is 34 year old male with decompensated cirrhosis, recently COVID + presenting with AMS #Acute hepatic encephalopathy - patient was getting standing lactulose. Lactulose dose was increased to 30 mg tid - aim for 3-5 bowel movements daily. Continue rifaximin -ammonia level was 132, improved to the 50's and increased to 64 #Decompensated cirrhosis #Transaminitis - pt reported abd distension on admission. Paracentesis unsuccessful in the ER. Started ceftriaxone for empiric SBP, treat for 5 days. Since patient lost IV, will switch to cefdinir, continue for two more days - patient has lost over 40 pounds. Diuretics held 01/25. Resume spironolactone at 25 mg daily since BP only 90's. Continue inderal for esophageal varices prophylaxis. IF BP stable, can increase spironolactone to 50 and resume lasix Hyponatremia - sodium dropped to 131. COnsider resuming lasix tomorrow if BP stable Acute respiratory alkalosis - ph 7.4 and bicarb 21. Chest X ray shows bilateral ground glass opacities. Not tachypneic anymore COVID + - first COVID + test 12/31 and repeat positive 01/22. Repeat positive. COVID isolation removed Fever - resolved - resolved. Blood cultures negative, UA negative, chest X ray shows bilateral pneumonia likely from old cOVID infection - getting IV ceftriaxone x 5 days for empiric SBP prophylaxis 02/06: The patient has been having diarrhea. Lactulose was placed on hold. He appears to be clinically dry. He systolic blood pressure is in the 80s. Presyncopal episode-due to orthostatic hypotension. I will administer 50 g of albumin and start normal saline at 70 cc/h for 1 L. Diuretics and antihypertensive medications on hold. 02/07: The patient has been hypotensive throughout yesterday and multiple black stools were reported. This morning his hemoglobin has dropped to below 6. Possible variceal bleeding is in the differential. Antihypertensive medications have been held. The patient is getting 2 units of packed RBCs. GI planning an upper endoscopy. 02/08: Hypotension due to active esophageal variceal bleed status post banding x4. Vital signs are currently stable after transfusion. Continue to monitor H&H. Continue octreotide and Protonix. Appreciate GI. 02/09: No further episodes of bleeding. Continue octreotide for 24 hours. Continue Protonix and cefdinir. His blood pressure has improved with systolics above 100. DC IV fluids. If his blood pressure does not drop, we will initiate propranolol. We will re-start spironolactone prior to discharge per GI.
[2020-02-10] MEDS: Sodium Chloride 0.9% 1,000 ML IV SCH (10:58)
[2020-02-10] MEDS: HumaLOG 300 UNITS/3 ML VIAL SC PRN ×2 (12:07→16:50)
[2020-02-10] MEDS: Octreotide Acetate 1,250 MCG in Sodium Chloride 0.9% 250 ML 250 ML IVPB SCH (16:41)
[2020-02-11 06:03] LABS: #Basophils 0.1 thou/uL (0.0-0.2); #Eosinphils 0.6 thou/uL (0.0-0.7); #Monocytes 0.5 thou/uL (0.11-0.59); #Neutrophils 2.1 thou/uL (1.40-6.50); %Basophils 1.4 % (0.0-1.0); %Eosinophils 10.8 % (0.0-10.0); %Lymphocytes 38.5 % (21.0-51.0); %Monocytes 9.9 % (0.0-10.0); %Neutrophils 39.4 % (42.0-75.0); Hemoglobin 8.3 g/dL (14.0-18.0); Mean Corpuscular HGB CONC 34.3 g/dL (32.0-36.0); Mean Platelet Volume 8.9 fL (7.4-10.4); Platelet Count 51 thou/uL (130-400); RBC Distribution Width 16.1 % (11.5-14.5); Red Blood Cell (RBC) Count 2.38 mill/uL (4.70-6.10); White Blood Cell (WBC) Count 5.2 thou/uL (4.8-10.8)
[2020-02-11 06:15] LABS: Anion Gap 10 mmol/L (10-20); BUN (Urea Nitrogen) 7 mg/dL (8.9-20.6); Calc. Creatinine Clearance 145 mL/min (70-130); Calcium 7.6 mg/dL (7.8-10.44); Carbon Dioxide 20 mmol/L (22-29); Chloride 106 mmol/L (98-107); Estimated GFR-MDRD Greater than 90; Glucose 88 mg/dL (70-105); Potassium 3.5 mmol/L (3.5-5.1); Sodium 132 mmol/L (136-145)
[2020-02-11 06:18] LABS: ALT (SGPT) 39 U/L (8-55); AST (SGOT) 49 U/L (5-34); Albumin 2.8 g/dL (3.5-5.0); Alkaline Phosphatase 135 U/L (40-110); Bilirubin, Total 6.1 mg/dL (0.2-1.2); Protein, Total 5.5 g/dL (6.0-8.3)
[2020-02-11] MEDS ORDERED: Potassium Chloride 20 MEQ TAB PO SCH (07:45)
--- NOTE | 2020-02-11 07:57 | PRG ---
DATE OF SERVICE: 02/10/2020 SUBJECTIVE: Mr. Ball is doing well. His is at bedside. He has been awake and alert. He has had no vomiting. He has been tolerating a full liquid diet. MEDICATIONS: He is on; 1. Tylenol. 2. Proventil. 3. Cefdinir. 4. Clonidine p.r.n., not using it. 5. Folic acid. 6. Lasix 20 mg daily. 7. Apresoline. 8. Multivitamin. 9. Octreotide. 10. Rifaximin. 11. Lactulose. 12. Thiamine. OBJECTIVE: VITAL SIGNS: Temperature , blood pressure 105/52, respiratory rate 18, pulse is 99. GENERAL: He has a little bit of shakiness, but he is alert and oriented. He is eating crackers and drinking liquids. LUNGS: Clear. HEART: Regular without clicks or murmurs. ABDOMEN: Soft, nontender. There is no rebound. There is no guarding. LABORATORY DATA: BUN is 10, down from 30 on the . Creatinine is 0.69 down from 1.08 on 02/03. Bilirubin was last checked on 02/06 and it was 4.3 down from 11.8 on 01/30. Hemoglobin is 8, platelets are 50,000. ASSESSMENT: 1. Upper gastrointestinal hemorrhage from esophageal varices, status post banding and repeat banding on the secondary to a slipped band with recurrent bleeding. He has been stable. We will stop the octreotide today. 2. Alcoholic liver disease, markedly improved from a couple of weeks ago. 3. Clinically, he is still a little bit dry. I would hold off on the furosemide. If we can a little will try to do that. If he has low blood pressures, I would just hold off on that. We can re-evaluate in the office in a week. Hopefully, he can go home tomorrow on a 2 g sodium diet. Job ID: [id number]
[2020-02-11] MEDS: Folic Acid 1 MG TAB PO SCH (08:31)
[2020-02-11] MEDS: Cefdinir 300 MG CAP PO SCH (08:32)
[2020-02-11] MEDS: Magnesium Oxide 400 MG TAB PO SCH (08:32)
[2020-02-11] MEDS: Rifaximin 550 MG TAB PO SCH (08:33)
[2020-02-11] MEDS: Multivitamin W/ Minerals 1 TAB PO SCH (08:34)
[2020-02-11] MEDS: Thiamine 100 MG TAB PO SCH (08:35)
[2020-02-11 10:50] VITALS: BP 101/67; TEMP 98.2
--- NOTE | 2020-02-11 12:40 | DIS ---
DATE OF ADMISSION: 02/01/2020 DATE OF DISCHARGE: 02/11/2020 DISCHARGE DIAGNOSES: 1. Upper GI bleeding due to variceal bleed. 2. Hepatic encephalopathy. 3. Chronic liver cirrhosis. 4. Hyponatremia. 5. History of COVID-19. 6. Diarrhea. DISCHARGE MEDICATIONS: 1. Omnicef 300 mg orally twice daily for 3 days. 2. Furosemide 20 mg orally daily. 3. Aldactone 50 mg orally daily. 4. Propranolol 5 mg orally daily. 5. Lactulose 10 g orally t.i.d. as needed to maintain 2 to 3 bowel movements a day. HISTORY OF PRESENT ILLNESS AND HOSPITAL COURSE: The patient is a 34-year-old male with past medical history of cirrhosis due to Hep C and alcohol abuse, who was brought to the hospital with altered mental status. The patient was recently admitted for decompensated cirrhosis and ascites and underwent large volume paracentesis. During this hospitalization, the patient was found to be hypotensive and dehydrated due to over-diuresis. Of note, the patient did leave AMA on his last admission. He was managed for hepatic encephalopathy with rifaximin and lactulose to achieve around 3 bowel movements a day, which led to improvement in his mental status. The patient's hospitalization was eventful for an episode of acute anemia and GI bleeding. He underwent EGD with banding x4 for a large esophageal varices. The patient was monitored for 72 hours and was on octreotide and Protonix. No recurrence of bleeding was noted. On the day of discharge, the patient appears to be stable and does not have any new complaints. Job ID: [id number] [facility]
== END 2020-02-11 10:24 | disposition home or self-care (01) | DRG 441 ==
LOC: ERS 19:21 → 2SW 02-01 01:03 → T4-A 02-04 15:17
PROVIDERS: ADMIT Internal Medicine; ATTEND Internal Medicine
PROC: 8E0ZXY6 Isolation (ICD-10-PCS; 2020-02-01)
PROC: 06L38CZ Occlusion of Esophageal Vein with Extraluminal Device, Via Natural or Artificial Opening Endoscopic (ICD-10-PCS; principal; 2020-02-08)
PROC: 30233N1 Transfusion of Nonautologous Red Blood Cells into Peripheral Vein, Percutaneous Approach (ICD-10-PCS; 2020-02-08)
DX: K72.00 Acute and subacute hepatic failure without coma (principal); I85.11 Secondary esophageal varices with bleeding; U07.1 COVID-19; J12.89 Other viral pneumonia; E87.3 Alkalosis; E87.1 Hypo-osmolality and hyponatremia; K70.31 Alcoholic cirrhosis of liver with ascites; F10.10 Alcohol abuse, uncomplicated; E11.9 Type 2 diabetes mellitus without complications; E83.42 Hypomagnesemia; D69.6 Thrombocytopenia, unspecified; I95.1 Orthostatic hypotension
CPT/HCPCS: 36415; 36416; 36430; 51702; 70450; 71045; 74177; 80048; 80053; 80076; 80306; 80307; 81003; 82140; 82330; 82803; 82805; 83605; 83690; 83735; 84443; 84484; 85025; 85027; 85610; 85730; 86850; 86900; 86901; 87040; 87086; 87635; 93005; 96361; 96365; 96367; 96372; 96375; C9113; J0692; J0696; J1430; J2001; J2060; J2354; J2405; J2704; J2765; J3010; J3370; J3411; J3475; J3490; J7050; P9016; P9047; Q9967; U0003